=== PATIENT | male | born 1945 | race Caucasian/White ===

== ENCOUNTER → 2018-01-18 12:39 | Outpatient (CLI) | payer MEDICARE, SELFPAY ==
--- NOTE | 2018-01-18 12:41 | RAD_ITS ---
STUDY: X-RAY - LEFT ANKLE REASON FOR EXAM: Male, 72 years old. Follow-up of distal fibular fracture. TECHNIQUE: 3 view(s) of the ankle. COMPARISON: December 21, 2017 FINDINGS: There is stable generalized osteopenia. There is a stable healing fracture of the distal fibula originating at the tibiotalar joint with minimal callus formation. No complications are noted. RAD/Ankle min 3 Views IMPRESSION: Stable appearance of the ankle without complications. Electronically Signed: Abel Abrams MD at 18:46 EST , Service support ,
== END ==
PROVIDERS: Family Provider Family Medicine; PCP Family Medicine; Visit Provider Orthopaedic Surgery
DX: S82.62XA Displaced fracture of lateral malleolus of left fibula, initial encounter for closed fracture (principal)
CPT/HCPCS: 73610

== ENCOUNTER → 2018-04-04 08:19 | Outpatient (CLI) | payer MEDICARE, SELFPAY ==
[2018-04-04 10:57] LABS: Anion Gap 10 (5-15); BUN 14 mg/dL (7-18); Calcium,Total 8.8 mg/dL (8.5-10.1); Chloride 107 mmol/L (98-107); Cholesterol 144 mg/dL (200); EST Glomerular Filtration Rate 78 mL/min (>60); Est Glom Filt Rate - Afr Amer 94 mL/min (>60); Glucose 95 mg/dL (74-106); High Density Lipoprotein 47 mg/dL; PSA,Total - Annual Screen 2.64 ng/mL (0.00-4.00); Potassium 4.1 mmol/L (3.5-5.1); Sodium Level 143 mmol/L (136-145); Thyroid Stim Hormone (TSH) 1.42 uIU/mL (0.358-3.74); Triglycerides 92 mg/dL; Very Low Density Lipoprotein 18 mg/dL (5-40)
[2018-04-05 08:42] LABS: Vitamin D,25 Hydroxy 30.8 ng/mL (29.95-100.01)
== END ==
PROVIDERS: Family Provider Family Medicine; PCP Family Medicine; Visit Provider Family Medicine
DX: Z00.00 Encounter for general adult medical examination without abnormal findings (principal); E03.9 Hypothyroidism, unspecified; Z12.5 Encounter for screening for malignant neoplasm of prostate
CPT/HCPCS: 36415; 80048; 80061; 82306; 84153; 84443; G0103

== ENCOUNTER → 2018-09-22 10:25 | Outpatient (CLI) | payer MEDICARE, SELFPAY ==
[2018-09-22 12:15] LABS: Absolute Lymphocyte Count 1.62 X10^3/ul (0.83-4.51); Absolute Neutrophil Count 2.2 X10^3/uL (2.0-7.7); Basophil# 0.03 X10^3/uL; Basophil% 0.7 % (0-1); Eosinophil# 0.09 X10^3/uL; Hematocrit 40.9 % (40-54); Lymphocyte # 1.62 X10^3/ul (4.0); Mean Corp Hgb Conc 34.2 g/gl (32-36); Mean Corpuscular Hgb 31.7 pg (27.0-32.0); Mean Corpuscular Volume 92.5 fL (80-94); Mean Platelet Vol. 10.2 fl (6.2-12.0); Monocyte# 0.58 X10^3/uL; Monocyte% 12.9 % (0-10); Neutrophil # 2.17 X10^3/uL (2.7-7.7); Neutrophil % 48.2 % (47-70); Platelet Count 187 K/mm3 (150-450); RBC Distribution Width CV 13.2 % (11.6-14.6); RBC Distribution Width SD 43.6 fl (35.1-43.9); Red Blood Count 4.42 M/mm3 (4.6-6.2); White Blood Count 4.5 K/mm3 (4.4-11.0)
[2018-09-22 12:27] LABS: POSITIVE COUNT NO; POSITIVE DIFFERENTIAL NO; POSITIVE MORPHOLOGY NO
[2018-09-22 12:46] LABS: Anion Gap 8 (5-15); BUN 18 mg/dL (7-18); BUN/Creat Ratio 16.8 RATIO (10-20); Calcium,Total 9.1 mg/dL (8.5-10.1); Chloride 108 mmol/L (98-107); Creatinine, Serum 1.07 mg/dL (0.70-1.30); EST Glomerular Filtration Rate 72 mL/min (>60); Est Glom Filt Rate - Afr Amer 87 mL/min (>60); Glucose 99 mg/dL (74-106); Potassium 4.4 mmol/L (3.5-5.1); Sodium Level 141 mmol/L (136-145); Thyroid Stim Hormone (TSH) 0.58 uIU/mL (0.358-3.74)
== END ==
PROVIDERS: Family Provider Family Medicine; PCP Family Medicine; Visit Provider Family Medicine
DX: E03.9 Hypothyroidism, unspecified (principal); R42 Dizziness and giddiness
CPT/HCPCS: 36415; 80048; 84443; 85025

== ENCOUNTER → 2018-10-03 15:27 | Outpatient (CLI) | payer MEDICARE, SELFPAY ==
--- NOTE | 2018-10-03 16:00 | MRI_ITS ---
STUDY: MRI BRAIN WITH AND WITHOUT CONTRAST REASON FOR EXAM: Male, 73 years old. Nystagmus and dizziness TECHNIQUE: Standardized multiplanar fat and water weighted pulse sequences were obtained. 9 ml of Gadavist contrast material was administered intravenously for the contrast portion of the examination. COMPARISON: None. FINDINGS: Mild atrophy and minor periventricular white matter ischemic changes without mass effect or restricted diffusion.. Normal bilateral basal ganglia. Normal thalami. There is no extra-axial fluid accumulation. Normal flow voids within the major intracranial circulation suggesting patency by spin echo criteria. Normal venous enhancement. There is no enhancing intra-axial or extra-axial abnormality. Partial empty sella deformity of uncertain clinical significance. Normal, infundibular stalk, optic chiasm and hypothalamus. Normal tectal plate and pineal gland. Normal midbrain, candace and medulla. Normal cerebellum. Normal basal cisterns. Normal bilateral temporal bones. Normal bilateral internal auditory canals. No demonstrated orbital abnormality, within the constraints of a routine brain study. Minor mucosal thickening of the ethmoid air cells.. Normal calvarium and skull base. Normal visualized soft tissue structures. Normal visualized upper cervical spine. MRI/Brain W/WO Contrast IMPRESSION: Mild atrophy and minor periventricular white matter ischemic changes without evidence for acute infarct.. No evidence for enhancing lesion. Specifically no evidence for acoustic or vestibular schwannoma Electronically Signed: Tyree Garcia MD at 23:24 EST , Service support ,
== END ==
PROVIDERS: Family Provider Family Medicine; PCP Family Medicine; Referring Provider Ophthalmology; Visit Provider Ophthalmology
DX: H55.00 Unspecified nystagmus (principal); R42 Dizziness and giddiness
CPT/HCPCS: 70553; A9585

== ENCOUNTER → 2019-06-15 | Outpatient (CLI) | payer MEDICARE, SELFPAY ==
[2019-06-15 10:32] LABS: Anion Gap 7 (5-15); BUN 17 mg/dL (7-18); BUN/Creat Ratio 16.7 RATIO (10-20); Calcium,Total 8.8 mg/dL (8.5-10.1); Chloride 106 mmol/L (98-107); Cholesterol 148 mg/dL (200); Creatinine, Serum 1.02 mg/dL (0.70-1.30); EST Glomerular Filtration Rate 76 mL/min (>60); Est Glom Filt Rate - Afr Amer 91 mL/min (>60); Glucose 95 mg/dL (74-106); High Density Lipoprotein 48 mg/dL; Potassium 4.2 mmol/L (3.5-5.1); Sodium Level 140 mmol/L (136-145); Thyroid Stim Hormone (TSH) 1.33 uIU/mL (0.358-3.74); Triglycerides 108 mg/dL; Very Low Density Lipoprotein 22 mg/dL (5-40)
== END | disposition home or self-care (01) ==
PROVIDERS: Family Provider Family Medicine; PCP Family Medicine; Referring Provider Family Medicine; Visit Provider Family Medicine
DX: Z00.00 Encounter for general adult medical examination without abnormal findings (principal); I25.10 Atherosclerotic heart disease of native coronary artery without angina pectoris; E03.9 Hypothyroidism, unspecified; I10 Essential (primary) hypertension; Z12.5 Encounter for screening for malignant neoplasm of prostate
CPT/HCPCS: 36415; 80048; 80061; 84153; 84443; G0103

== ENCOUNTER → 2019-07-06 09:55 | Outpatient (CLI) | payer MEDICARE, SELFPAY ==
--- NOTE | 2019-07-06 09:59 | RAD_ITS ---
STUDY: X-RAY - RIGHT KNEE REASON FOR EXAM: Male, 74 years old. Pain TECHNIQUE: 4 view(s) of the knee. COMPARISON: None. FINDINGS: Normal visualized distal femur. Normal visualized proximal tibia and fibula. Normal proximal tibiofibular articulation. Normal medial femorotibial compartment. Normal lateral femorotibial compartment. Normal patellofemoral articulation. The soft tissue structures are unremarkable. Chondrocalcinosis of the menisci. RAD/Knee 4 or More Views IMPRESSION: No acute bony injury of the knee. Chondrocalcinosis of the menisci. Electronically Signed: Jean Contreras DO at 20:24 EDT Tel [phone], Service support ,
--- NOTE | 2019-07-06 10:21 | LES_PTH ---
PATIENT: PHILIPPE JACOBSON LOC: [facility] U#:[id number] AGE/SX: 80/M ROOM: RE07/06/[address]: Dr. Brannon Valles MD : [id number] BED: DIS: SPEC #: [id number] RECD: 07/06/19 12:10 STATUS: SOFIA MILA #: [id number] MAGED: 07/06/19 10:[address]: Brannon Valles DEPT: SURGICAL PATHOLOGY RECD BY: Asim Mcnamara Tissues: Skin, NOS Procedures: Surgery Specimen Level IV HEADER OPERATION: Biopsy, skin PRE-OP DIAGNOSIS: Neoplasm TISSUE SUBMITTED: Biopsy, skin MICROSCOPIC DIAGNOSIS Skin, not further specified, biopsy: Basal cell carcinoma. See comment. AM:robert 07/09/19 COMMENT The lesion extends to the peripheral and deep margins of excision. Clinical correlation is suggested. MICROSCOPIC DESCRIPTION Slides are reviewed. GROSS DESCRIPTION Received is one container labeled with the patient's name and not further designated. The specimen consists of a piece of jones-white skin measuring 1.2 x 0.5 x 0.1 cm. The specimen is inked and submitted entirely in one cassette. It will be sectioned at the time of embedding. / SJ:rg 07/06/19 TC:0 CPT: 81288
== END ==
PROVIDERS: Family Provider Family Medicine; PCP Family Medicine; Referring Provider Family Medicine; Visit Provider Family Medicine
DX: M25.561 Pain in right knee (principal); D49.9 Neoplasm of unspecified behavior of unspecified site
CPT/HCPCS: 73564; 88305

== ENCOUNTER 2019-08-08 13:00 | Outpatient (RCR) | payer MEDICARE, SELFPAY ==
--- NOTE | 2019-07-18 14:24 | HP.PTEVAL ---
Patient's Visit Information PHILIPPE JACOBSON is a 74 year old M referred to Physical Therapy by ORLIN MOHR with a diagnosis of R knee pain. Date of Evaluation: 07/18/19 Physical Therapist: Candelario Resendiz, PT, ATC - Visit Plan Frequency: 2x /Week Duration: 2 Weeks Plan: Issue and instruct pt on a HEP consisting of core stab ex's, R LE strengthening, balance and proprio, bike, and HEP - Subjective Findings: Pt reports his R knee has been sore for about 8 months. Pt reports he fractured his L fibula one year ago and notes he may have overcompensated with his R LE. Pt reports his pain is intermittent in nature. Pt reports when he rotates on his R LE, he will experience a sharp and debilitating on the medial aspect of his R knee. Pt reports xrays indicated he may have some calcification of his meniscus. No tingling or numbness in R LE. Pt reports occasional sleep difficulty secondary to pain. Pt reports he is very limited with squat to stand transfers. R knee gives out when he gets that sharp pain in his R knee. Pt reports no difficulty with his stair negotiation secondary to pain. 0/10 pain at rest, 7/10 at worst - Pain R knee Pain Intensity (Out of 10): 0 Pain Intensity Range: 7 - Objective Neuro: B LE sensation is wnl to light touch. B achilles reflex= 2/3. Palpation: significant crepitus in R knee. Mild swelling noted. Very tenxder on medial joint line. Girth at joint line: R knee 39 cm, L knee 38 cm. ROM: Lknee 0-5-140 degrees. R knee 0-5-135. MMT: B knee flex= 5/5. B knee ext= 4-/5 and was painful. special tests: Pos apley compression test - Goals Goal 1:: I with HEP Goal Time Frame: 2 Weeks - Rehabilitation Potential Physical Therapy Diagnosis: Pt has R knee pain, weakness, and limited ROM secondary to degenerative changes in the R knee Rehabilitation Potential: Good - Anticipated Interventions Patient/Client Instruction: Educate patient on: Condition, Plan of Care For the Purpose of:: To improve self management Therapeutic Exercise to Include: Strength training, Endurance training, Balance training, Dynamic Lumbar Stabilization For the Purpose of:: To decrease pain, To increase ROM, To improve muscle performance and motor function Cryotherapy (ice pack, ice massage): Yes For the Purpose of:: To decrease pain Thank you for the opportunity to evaluate your patient. For Medicare and Medicare HMO plans, please review the plan of care and approve it. It will need to be FAXED BACK to us at [phone] for Medicare purposes. For Medicare only, by signing this I certify the plan of care. Please let me know if there are questions or concerns regarding this plan of care. Physician Signature: Date:
--- NOTE | 2019-09-25 10:52 | HP.PT.NRP ---
HP - Discharge Summary (1) - Patient Information PHILIPPE JACOBSON was seen in my office for initial evaluation on 07/18/19. The following Plan of Care was established for this patient: Initial Frequency: 2x /Week Initial Duration: 2 Weeks - Anticipated Interventions Patient/Client Instruction: Educate patient on: Condition, Plan of Care For the Purpose of:: To improve self management Therapeutic Exercise to Include: Strength training, Endurance training, Balance training, Dynamic Lumbar Stabilization For the Purpose of:: To decrease pain, To increase ROM, To improve muscle performance and motor function Cryotherapy (ice pack, ice massage): Yes For the Purpose of:: To decrease pain This patient was last seen in our office . Pertinent comments regarding their Physical therapy will appear below: Patient was treated for R knee pain for 2 PT visits through the date of 08/08/19. Pt has not returned through todays date and is discontinued at this time. At this point I will be discontinuing this patient from physical therapy. I would be happy to see this patient again in the future if found appropriate by the physician. Thank you! Candelario Resendiz, PT, ATC
== END 2019-08-08 19:00 | disposition home or self-care (01) ==
LOC: PT 13:00
PROVIDERS: Family Provider Family Medicine; PCP Family Medicine
DX: M25.561 Pain in right knee (principal)
CPT/HCPCS: 97110; 97161

== ENCOUNTER → 2020-03-05 | Outpatient (CLI) | payer MEDICARE, SELFPAY ==
[2020-03-05 12:35] LABS: Anion Gap 4 (5-15); BUN 16 mg/dL (7-18); BUN/Creat Ratio 14.8 RATIO (10-20); Calcium,Total 9.2 mg/dL (8.5-10.1); Chloride 108 mmol/L (98-107); Cholesterol 160 mg/dL (200); Creatinine, Serum 1.08 mg/dL (0.70-1.30); EST Glomerular Filtration Rate 71 mL/min (>60); Est Glom Filt Rate - Afr Amer 85 mL/min (>60); Free T3 2.7 pg/mL (2.18-3.98); Glucose 101 mg/dL (74-106); High Density Lipoprotein 55 mg/dL; Potassium 4.3 mmol/L (3.5-5.1); Sodium Level 140 mmol/L (136-145); Thyroid Stim Hormone (TSH) 2.44 uIU/mL (0.358-3.74); Triglycerides 113 mg/dL; Very Low Density Lipoprotein 23 mg/dL (5-40)
== END | disposition home or self-care (01) ==
PROVIDERS: PCP Family Medicine; Referring Provider Family Medicine; Visit Provider Family Medicine
DX: E03.9 Hypothyroidism, unspecified (principal); I10 Essential (primary) hypertension
CPT/HCPCS: 36415; 80048; 80061; 84443; 84481

== ENCOUNTER → 2020-09-04 | Outpatient (CLI) | payer MEDICARE, SELFPAY ==
[2020-09-04 10:37] LABS: Anion Gap 5 (5-15); BUN 21 mg/dL (7-18); BUN/Creat Ratio 21.5 RATIO (10-20); Calcium,Total 9.1 mg/dL (8.5-10.1); Chloride 107 mmol/L (98-107); Creatinine, Serum 0.98 mg/dL (0.70-1.30); EST Glomerular Filtration Rate 79 mL/min (>60); Est Glom Filt Rate - Afr Amer 96 mL/min (>60); Glucose 100 mg/dL (74-106); PSA,Total - Annual Screen 2.67 ng/mL (0.00-4.00); Potassium 4.1 mmol/L (3.5-5.1); Sodium Level 139 mmol/L (136-145); Thyroid Stim Hormone (TSH) 1.24 uIU/mL (0.358-3.74)
== END | disposition home or self-care (01) ==
LOC: MFPLAB 08:57
PROVIDERS: PCP Family Medicine; Referring Provider Family Medicine; Visit Provider Family Medicine
DX: Z00.00 Encounter for general adult medical examination without abnormal findings (principal); E03.9 Hypothyroidism, unspecified; Z12.5 Encounter for screening for malignant neoplasm of prostate
CPT/HCPCS: 36415; 80048; 84153; 84443; G0103

== ENCOUNTER → 2021-03-04 10:40 | Outpatient (CLI) | payer MEDICARE, SELFPAY ==
[2021-03-04 12:55] LABS: Anion Gap 3 (5-15); BUN 14 mg/dL (7-18); BUN/Creat Ratio 14.3 RATIO (10-20); Calcium,Total 9.1 mg/dL (8.5-10.1); Chloride 106 mmol/L (98-107); Cholesterol 158 mg/dL (200); Creatinine, Serum 0.98 mg/dL (0.70-1.30); EST Glomerular Filtration Rate 79 mL/min (>60); Est Glom Filt Rate - Afr Amer 95 mL/min (>60); Free T3 2.2 pg/mL (2.18-3.98); Glucose 99 mg/dL (74-106); High Density Lipoprotein 57 mg/dL; Potassium 4.2 mmol/L (3.5-5.1); Sodium Level 137 mmol/L (136-145); T4 Free Direct 1.32 ng/dL (0.76-1.46); Thyroid Stim Hormone (TSH) 5.51 uIU/mL (0.358-3.74); Triglycerides 112 mg/dL; Very Low Density Lipoprotein 22 mg/dL (5-40)
== END ==
PROVIDERS: PCP Family Medicine; Referring Provider Family Medicine; Visit Provider Family Medicine
DX: I10 Essential (primary) hypertension (principal); E03.9 Hypothyroidism, unspecified
CPT/HCPCS: 36415; 80048; 80061; 84439; 84443; 84481

== ENCOUNTER → 2021-06-18 13:42 | Outpatient (CLI) | payer MEDICARE, SELFPAY ==
[2021-03-20 07:57] VITALS: BMI 28.5
--- NOTE | 2021-06-18 13:45 | RAD_ITS ---
STUDY: X-RAY - RIGHT SHOULDER REASON FOR EXAM: Right shoulder pain. TECHNIQUE: 4 view(s) of the shoulder. COMPARISON: None. FINDINGS: Normal glenohumeral articulation. There is acromioclavicular arthrosis. Normal acromion. Normal humeral head and visualized proximal humerus. There is mild calcific tendinitis. Normal visualized pulmonary apex. RAD/Shoulder min 2 Views IMPRESSION: Mild calcific tendinitis. Acromioclavicular arthrosis. Electronically Signed: Ye Monterroso MD at 14:09 EDT Tel , Service support ,
== END ==
PROVIDERS: PCP Family Medicine; Referring Provider Family Medicine; Visit Provider Family Medicine
DX: M25.511 Pain in right shoulder (principal)
CPT/HCPCS: 73030

== ENCOUNTER → 2021-08-05 14:14 | Outpatient (CLI) | payer MEDICARE, SELFPAY ==
[2021-03-20 07:57] VITALS: BMI 28.5
--- NOTE | 2021-08-05 15:27 | NEURO ---
NCS and/or EMG Patient Report Ordering Doctor: Brannon Valles DATE OF SERVICE: 08/05/21 Jay presents for electrodiagnostic testing of the right upper limb. He reports numbness and tingling in the right hand, worse over the past 2 months. Electrodiagnostic findings: Right median motor nerve demonstrates prolonged distal latency with reduced amplitude and reduced conduction velocity. Normal right ulnar motor response prolonged right median F wave. Absent right median sensory latency at the wrist. Normal ulnar radial sensory responses. On needle EMG, all muscles tested the right upper limb showed no evidence of denervation with normal motor unit action potentials. Electrodiagnostic impression: This is an abnormal study in the right upper limb. 1. Electrodiagnostic findings demonstrate right-sided median mononeuropathy. This is consistent with a moderate to advanced right carpal tunnel syndrome
== END ==
PROVIDERS: PCP Family Medicine; Referring Provider Family Medicine; Visit Provider Family Medicine
DX: G56.01 Carpal tunnel syndrome, right upper limb (principal)
CPT/HCPCS: 95886; 95910

== ENCOUNTER → 2021-08-25 10:20 | Outpatient (CLI) | payer MEDICARE, SELFPAY ==
--- NOTE | 2021-08-25 10:45 | EKG12_ITS ---
Test Reason : PREOP Blood Pressure : / mmHG Vent. Rate : 064 BPM Atrial Rate : 064 BPM P-R Int : 156 ms QRS Dur : 090 ms QT Int : 398 ms P-R-T Axes : 072 044 067 degrees QTc Int : 410 ms Normal sinus rhythm Normal ECG Confirmed by ANA SANCHEZ, LACIE ([id number]), fashion editor AJ LANIER ([id number]) on 08/26/2021 10:51:01 AM Referred By: Matti Salgado Confirmed By:LACIE PEREZ MD
[2021-08-25 11:00] LABS: Absolute Lymphocyte Count 1.23 X10^3/uL (0.83-4.51); Absolute Neutrophil Count 5.2 X10^3/uL (2.0-7.7); Basophil# 0.05 X10^3/uL; Basophil% 0.6 % (0-1); Eosinophil# 0.12 X10^3/uL; Eosinophils% 1.5 % (0-5); Hematocrit 40.5 % (40-54); Hemoglobin 13.5 g/dL (13.0-16.5); Lymphocyte # 1.23 X10^3/ul (0.83-4.51); Lymphocyte % 15.6 % (19-41); Mean Corp Hgb Conc 33.3 g/dL (32-36); Mean Corpuscular Hgb 31.3 pg (27.0-32.0); Mean Platelet Vol. 9.5 fl (6.2-12.0); Monocyte# 1.22 X10^3/uL; Monocyte% 15.5 % (0-10); NRBC Flagged by Analyzer 0 % (0-5); Neutrophil # 5.19 X10^3/uL (2.7-7.7); Neutrophil % 66.2 % (47-70); Platelet Count 201 K/mm3 (150-450); RBC Distribution Width CV 13.8 % (11.6-14.6); RBC Distribution Width SD 47.5 fl (35.1-43.9); Red Blood Count 4.31 M/mm3 (4.6-6.2); White Blood Count 7.9 K/mm3 (4.4-11.0)
[2021-08-25 11:32] LABS: Anion Gap 7 (5-15); BUN 15 mg/dL (7-18); Chloride 103 mmol/L (98-107); EST Glomerular Filtration Rate 77 mL/min (>60); Est Glom Filt Rate - Afr Amer 93 mL/min (>60); Glucose 125 mg/dL (74-106); Potassium 4.1 mmol/L (3.5-5.1); Sodium Level 138 mmol/L (136-145)
== END ==
PROVIDERS: PCP Family Medicine; Referring Provider Specialist; Visit Provider Specialist
DX: Z01.818 Encounter for other preprocedural examination (principal)
CPT/HCPCS: 36415; 80048; 85025; 93005

== ENCOUNTER → 2021-09-04 09:01 | Outpatient (CLI) | payer MEDICARE, SELFPAY ==
[2021-09-04 10:15] LABS: Cholesterol 137 mg/dL (200); Free T3 2.1 pg/mL (2.18-3.98); High Density Lipoprotein 45 mg/dL; T4 Free Direct 1.67 ng/dL (0.76-1.46); Thyroid Stim Hormone (TSH) 0.99 uIU/mL (0.358-3.74); Triglycerides 90 mg/dL; Very Low Density Lipoprotein 18 mg/dL (5-40)
== END ==
PROVIDERS: PCP Family Medicine; Referring Provider Family Medicine; Visit Provider Family Medicine
DX: E03.9 Hypothyroidism, unspecified (principal); I10 Essential (primary) hypertension
CPT/HCPCS: 36415; 80061; 84439; 84443; 84481

== ENCOUNTER 2022-01-05 12:30 | Outpatient (RCR) | payer MEDICARE, SELFPAY ==
--- NOTE | 2021-12-07 18:02 | HP.PTEVAL ---
Patient's Visit Information PHILIPPE JACOBSON is a 76 year old M referred to Physical Therapy by LUKE Hendrix with a diagnosis of OA L SHLD. Date of Evaluation: 12/07/21 Physical Therapist: Ellie Bran PT, Cert MDT - Visit Plan Frequency: 2-3x /Week Duration: 4-6 Weeks Plan: CHECK INSURANCE AUTH. CONSIDER L SHLD US. LEFT SHLD JOINT MOBILIZATION AND MANUAL AA/PROM TO INCREASE ROM GENTLY. POSTURE CORRECTION/STRENGTHENING, INSTRUCTION IN APPROPRIATE BODY MECHANICS AND ACTIVITY MODIFICATIONS. WALLY UE ROM, STRETCHING AND STRENGTHENING. HEP INSTRUCTION. - Subjective Diagnosis: L SHLD OA. 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 Present symptoms: WALLY SHLD PAIN LEFT > RIGHT. NECK STIFFNESS. SHOOTING PAINS IN WRIST. REPORTS ROSA BUTLER AT [facility] TOLD HIM ROBY MIGHT NEED TO CONSIDER CTR ON HIS LEFT WRIST TOO. R CTR SEP 2021. ONCE IN A WHILE STILL GETS A LITTLE SHOOTING PAIN IN THE RIGHT WRIST. Present since: MAY 2021. Pain Scale: Worst - 7/10 Least - 1-2/10. Currently: WALLY SHLD PAIN 1-2/10. Commenced as a result of: TRIMMING TREES IN MAY AFTER BEING SEDENTARY FOR 6-12 MONTHS. LIFTING BIG LIMBS AND FEELS LIKE HE OVER-DID IT. Symptoms at onset: SORENESS IN ARMS AND SHLDS AND LOW BACK. JUN STARTED HAVING SWELLING IN BOTH HANDS. CTR R HELPED THE SWELLING AND L HAND SWELLING EVENTUALLY WENT AWAY AFTER L SHLD CORTISONE SHOT. Worse: LIFTING, PUSHING OR PULLING WITH ARMS. PUTTING ON SHIRT AND COAT. Better: LET ARMS HANG AT SIDES - DECREASES FROM 6-7/10 TO 1/10 PAIN. ADVIL. Disturbed sleep: YES. Previous history/Previous treatment: UNREMARKABLE OTHER THAN SOME RIGHT HAND NUMBNESS. NO NECK SX. NO SHLD SX. NO ANASTACIA'S. NO CHIROPRACTOR. This episode: R CTR SEP 2021. PREDNISONE X 2 - HELPED A LOT. CORTISONE INJECTION R SHLD JUN 2021 - HELPED BUT TEMPORARY. L SHLD CORTISONE SHOT LAST WEEK 12/02/21. Dizziness: YES BUT NOT NEW. Tinnitis: CHRONIC. Nausea: NO. Shortness of Breath: NO. Difficulty Swollowing: NO. Gait: NORMAL - WALKING ABUT 2 MILES A DAY. Accidents: NO. Unexplained weight loss: NO. Imaging: RIGHT SHLD X-RAY - MILD CALCIFIC TENDONITIS MAY 2021. L SHLD X-RAY AND MRI IN OCT 2021 AT [facility] SHOWING MILD TEAR ROTATOR CUFF AND CALCIFICATION AND ARTHRITIS. PMH: L FIBULA FX FROM FALL ON BLACK ICE 2 YEARS AGO. HERNIA REPAIR A LONG TIME AGO. HEART STENTS 1998 AND 2002. HTN. HIGH CHOLESTEROL. - Objective Sitting Posture/Standing Posture: POOR. FH. RS'S. Active Correction of posture: NE. Other Observations: INDEP GAIT AND TRANSFERS. GOOD HISTORIAN. Motor deficit: WALLY SHLDS 3-/5, ELBOWS 5/5. WRISTS/HANDS DEFERRED TO OT - PATIENT PLANS TO DISCUSS OT WITH PHYSICIAN. Sensory deficit: WALLY UE LIGHT TOUCH SENSATION IS GROSSLY INTACT AND SYMMETRICAL BUT PATIENT REPORTS R DIGITS 2,3 AND [address] AND [address] FOOTE AWARE. ROM deficit: RIGHT SHLD ACTIVE ELEVATION TO 120 DEG AND LEFT 125 DEG IN SITTING. RIGHT SHLD SUPINE PASSIVE FLEX 142, ABD 140 DEG, ER 44 DEG, 51 DEG. RIGHT FLEX 138, ABD 110 DEG, ER 68 DEG, IR 54 DEG (ROTIONS MEASURED AT 60 DEG ABD). Cervical Mvmt Loss: Flex: NIL. Pro: NIL. Ext: MOD. Ret: MOD. RSB: MOD. LSB: MOD. R Rot: MIN. L Rot: MIN. PATIENT DENIES INCREASE IN ANY SX'S WITH NECK ROM TESTING. Postural strength: POOR. Palpation: NO ACUTE TENDERNESS WITH PALPATION OF CERVICAL OR WALLY SHLD REGIONS. TREATMENT: NEUROMUSCULAR REEDUCATION - INTRO TO RETRAINING OF MVMT AND POSTURE FOR SITTING AND STANDING ACTIVITIES. - Balance/Special Test Scores Quick DASH Score: 27.2725 - Goals Goal 1:: DECREASE C/O WALLY SHLD PAIN Goal Time Frame: 4-6 Weeks Goal 2:: INCREASE PAINFREE WALLY SHLD ROM TO EASE ADL'S Goal Time Frame: 4-6 Weeks Goal 3:: IMPROVE WALLY SHLD STRENGTH TO EASE ADL'S. Goal Time Frame: 4-6 Weeks Goal 4:: PATIENT WILL BE INDEP WITH A HEP FOR CONTINUED IMPROVEMENT ONCE FORMAL PHYSICAL THERAPY CONCLUDES. Goal Time Frame: 4-6 Weeks - Anticipated Interventions Patient/Client Instruction: Educate patient on: Condition, Plan of Care, Risk Factors For the Purpose of:: To improve self management Therapeutic Exercise to Include: Strength training, Body mechanics, Postural training, Flexibilty training, Neuromotor development, Scapular Strength/Stabilization For the Purpose of:: To decrease pain, To increase ROM, To improve muscle performance and motor function, To increase tolerance to activity/condition/position, To improve ability of physical actions for home/community/work/leisure Manual Therapy Techniques to Include: Passive ROM Comment: LEFT SHLD For the Purpose of:: To decrease pain, To increase ROM, To improve nutrient delivery to tissue Cryotherapy (ice pack, ice massage): Yes Thermo therapy (hot pack): Yes Ultrasound (thermal/non thermal): Yes - LEFT SHLD Thank you for the opportunity to evaluate your patient. For Medicare and Medicare HMO plans, please review the plan of care and approve it. It will need to be FAXED BACK to us at [phone] for Medicare purposes. For Medicare only, by signing this I certify the plan of care. Please let me know if there are questions or concerns regarding this plan of care. Physician Signature: Date:
--- NOTE | 2022-01-05 12:57 | HP.PTDCSUM_ITS ---
It has been my pleasure to treat PHILIPPE JACOBSON referred by LUKE Hendirx, with the diagnosis of OA L SHLD for a total of 7 visit(s). Discharge Date: Please see the following information for a summary of their discharge status. Subjective: PATIENT REPORTS HE SPENT ABOUT 3 HOURS TUESDAY SNOW BLOWING WITH INCREASED SHLD AND LEG PAIN AFTER. ALSO HURT SHOULDER RAKING SNOW OFF ROOF. REPORTS SEEING PA AT [facility] YESTERDAY AND SHE REFERRED HIM FOR ORTHO CONSULT TUESDAY. STATES HE IS CONTINUEING THE HOME EX'S THAT DON'T HURT. DESPITE CURRENT INCREASED PAIN HE REPORTS HE WAS GETTING SOME INCREASED FLEXABILITY IN HIS SHLD, A LITTLE LESS PAIN AND SLEEPING BETTER. WALLY SHLD'S Pain Intensity (Out of 10): 2 % Improvement: 20 Objective/Function: PATIENT WAS SEEN TODAY FOR RE-ASSESSMENT OF PROGRESS TOWARD THE SET PT GOALS AND THE NEED FOR FURTHER PHYSICAL THERAPY VS READINESS FOR DISCHARGE. OVER ALL AT THIS POINT PATIENT IS NOT MAKING SIGNIFICANT PROGRESS TOWARD SET GOALS BUT HE DOES HAVE A TOLERABLE HEP TO TRY TO MAINTAIN THE STRENGTH AND RANGE HE HAS IN HIS SHLD AND POSSIBLY IMPROVE OVER TIME. UPON EXAM TODAY: ROM deficit: RIGHT SHLD ACTIVE ELEVATION TO 150 DEG AND LEFT 132 DEG IN SITTING. RIGHT SHLD SUPINE PASSIVE FLEX 148, ABD 142 DEG, ER 42 DEG, IR 57 DEG. (ROTIONS MEASURED AT 60 DEG ABD). Goal 1:: DECREASE C/O WALLY SHLD PAIN Goal 2:: INCREASE PAINFREE WALLY SHLD ROM TO EASE ADL'S Goal 3:: IMPROVE WALLY SHLD STRENGTH TO EASE ADL'S. Goal 4:: PATIENT WILL BE INDEP WITH A HEP FOR CONTINUED IMPROVEMENT ONCE FORMAL PHYSICAL THERAPY CONCLUDES. Plan: PHYSICIAN RE-CHECK RECOMMENDED. D/C TO HEP TOLERATED AND FURTHER PHYSICIAN FOLLOW UP. PATIENT AGREEABLE. If there are questions or concerns regarding this patient's physical therapy, please feel free to call me at [phone]. Thank you for the referral of this patient. Sincerely, Ellie Bran, PT, Cert MDT Balance/Gait/Functional tests - Balance/Special Test Scores Quick DASH Score: [phone]
== END 2022-01-05 19:00 | disposition home or self-care (01) ==
LOC: PT 12:30
PROVIDERS: PCP Family Medicine; Referring Provider Physician Assistant Surgical; Visit Provider Physician Assistant Surgical
DX: M19.012 Primary osteoarthritis, left shoulder (principal)
CPT/HCPCS: 97035; 97140; 97162; 97164; 97530

== ENCOUNTER 2022-01-11 10:31 | Outpatient (CLI) | payer MEDICARE, SELFPAY ==
[2022-01-11 12:47] LABS: Creatinine, Serum 0.84 mg/dL (0.70-1.30); EST Glomerular Filtration Rate 94 mL/min (>60); Est Glom Filt Rate - Afr Amer 114 mL/min (>60)
== END 2022-01-11 23:59 | disposition home or self-care (01) ==
LOC: MFPLAB 10:33
PROVIDERS: PCP Family Medicine; Visit Provider Student in an Organized Health Care Education/Training Program
DX: Z01.812 Encounter for preprocedural laboratory examination (principal)
CPT/HCPCS: 36415; 82565

== ENCOUNTER 2022-02-26 12:01 | Outpatient (CLI) | payer MEDICARE, SELFPAY ==
--- NOTE | 2022-02-26 12:32 | RAD_ITS ---
EXAM: X-ray chest PA and lateral. HISTORY: PRE-OP TECHNIQUE: XR Chest 2 Views COMPARISON: None. LIMITATIONS: None. HEART: Normal size. TUBES/LINES: None. LUNGS: Normal. PLEURA: Normal. MEDIASTINUM: Normal. BONES/SOFT TISSUES: Normal. OTHER: Normal. CONCLUSION: Normal chest. Electronically Signed: Kim Lopez MD at 21:03 EDT , RAD/Chest PA and Lateral
[2022-02-26 15:36] LABS: Hematocrit 42.2 % (40-54); Mean Corp Hgb Conc 33.2 g/dL (32-36); Mean Corpuscular Hgb 31.4 pg (27.0-32.0); Mean Corpuscular Volume 94.6 fL (80-94); Mean Platelet Vol. 9.6 fl (6.2-12.0); Platelet Count 320 K/mm3 (150-450); RBC Distribution Width SD 48.3 fl (35.1-43.9); Red Blood Count 4.46 M/mm3 (4.6-6.2); White Blood Count 9.7 K/mm3 (4.4-11.0)
[2022-02-26 16:02] LABS: Anion Gap 9 (5-15); BUN 22 mg/dL (7-18); BUN/Creat Ratio 24.4 RATIO (10-20); Calcium,Total 9.4 mg/dL (8.5-10.1); Chloride 105 mmol/L (98-107); EST Glomerular Filtration Rate 86 mL/min (>60); Est Glom Filt Rate - Afr Amer 105 mL/min (>60); Glucose 70 mg/dL (74-106); Potassium 4.2 mmol/L (3.5-5.1); Sodium Level 138 mmol/L (136-145)
== END 2022-02-26 23:59 | disposition home or self-care (01) ==
PROVIDERS: PCP Family Medicine; Referring Provider Student in an Organized Health Care Education/Training Program; Visit Provider Student in an Organized Health Care Education/Training Program
DX: Z01.818 Encounter for other preprocedural examination (principal); Z01.811 Encounter for preprocedural respiratory examination
CPT/HCPCS: 36415; 71046; 80048; 85027

== ENCOUNTER → 2022-09-09 | Outpatient (CLI) | payer MEDICARE, SELFPAY ==
[2022-09-09 13:16] LABS: Anion Gap 7 (5-15); BUN 15 mg/dL (7-18); BUN/Creat Ratio 16.9 RATIO (10-20); Calcium,Total 9.4 mg/dL (8.5-10.1); Chloride 105 mmol/L (98-107); Cholesterol 140 mg/dL (200); Creatinine, Serum 0.89 mg/dL (0.70-1.30); EST Glomerular Filtration Rate 88 mL/min (>60); Est Glom Filt Rate - Afr Amer 106 mL/min (>60); Free T3 2.8 pg/mL (2.18-3.98); Glucose 98 mg/dL (74-106); High Density Lipoprotein 50 mg/dL; Potassium 3.9 mmol/L (3.5-5.1); Sodium Level 139 mmol/L (136-145); T4 Free Direct 1.62 ng/dL (0.76-1.46); Thyroid Stim Hormone (TSH) 0.61 uIU/mL (0.358-3.74); Triglycerides 109 mg/dL; Very Low Density Lipoprotein 22 mg/dL (5-40)
== END | disposition home or self-care (01) ==
LOC: MFPLAB 11:27
PROVIDERS: PCP Family Medicine; Referring Provider Family Medicine; Visit Provider Family Medicine
DX: I10 Essential (primary) hypertension (principal); E03.9 Hypothyroidism, unspecified
CPT/HCPCS: 36415; 80048; 80061; 84439; 84443; 84481

== ENCOUNTER → 2022-09-20 | Outpatient (CLI) | payer MEDICARE, SELFPAY ==
--- NOTE | 2022-09-20 12:31 | MRI_ITS ---
STUDY: MRI RIGHT SHOULDER REASON FOR EXAM: Male, 77 years old. SHOULDER PAIN,ROTATOR CUFF DISORDER SUSPECTED pain at superior lateral edge of proximal humerus, painful abduction x 2 months TECHNIQUE: Standardized fat and water weighted pulse sequences were obtained in all 3 orthogonal planes. COMPARISON: X-ray of the right shoulder dated June 18, 2021 FINDINGS: There is moderate partial interstitial tearing at the anterior aspect of the greater tuberosity insertion site is present and a distended with moderate swelling and edema and thickening of the surrounding fibers. Normal infraspinatus tendon. Normal subscapularis tendon. Normal teres minor tendon. Normal supraspinatus muscle. Normal infraspinatus muscle. Normal subscapularis muscle. Normal teres minor muscle. Normal glenohumeral articulation. Normal humeral head and visualized proximal humerus. Normal biceps labral complex. Normal intracapsular long biceps tendon. Normal labrum. Normal capsulo- ligamentous complex. Normal rotator interval. There is mild osteoarthritis of the acromioclavicular articulation. There is a Type II morphology (curved), with a neutral orientation. There is moderate fluid distention of the subacromial bursa, consistent with moderate subacromial-subdeltoid bursitis. Normal visualized coracohumeral and coracoacromial ligaments. Normal quadrilateral space. Normal axillary space. Normal deltoid muscle. Normal trapezius muscle. MRI/Upper Ext Joint Only(Routine) IMPRESSION: 1. There is moderate partial interstitial tearing at the anterior aspect of the greater tuberosity insertion site is present and a distended with moderate swelling and edema and thickening of the surrounding fibers. 2. Moderate subdeltoid bursal effusion Electronically Signed: Paxton Carrero MD at 14:14 EDT ,
== END | disposition home or self-care (01) ==
PROVIDERS: PCP Family Medicine; Referring Provider Student in an Organized Health Care Education/Training Program; Visit Provider Student in an Organized Health Care Education/Training Program
DX: M25.511 Pain in right shoulder (principal)
CPT/HCPCS: 73221

== ENCOUNTER → 2023-03-09 | Outpatient (CLI) | payer MEDICARE, SELFPAY ==
[2023-03-09 13:20] LABS: Anion Gap 2 (5-15); BUN 16 mg/dL (7-18); BUN/Creat Ratio 15.4 RATIO (10-20); Calcium,Total 9.3 mg/dL (8.5-10.1); Chloride 108 mmol/L (98-107); Cholesterol 176 mg/dL (200); Creatinine, Serum 1.04 mg/dL (0.70-1.30); EST Glomerular Filtration Rate 73 mL/min (>60); Est Glom Filt Rate - Afr Amer 88 mL/min (>60); Free T3 2.6 pg/mL (2.18-3.98); Glucose 100 mg/dL (74-106); High Density Lipoprotein 55 mg/dL; Sodium Level 136 mmol/L (136-145); T4 Free Direct 1.55 ng/dL (0.76-1.46); Thyroid Stim Hormone (TSH) 0.47 uIU/mL (0.358-3.74); Triglycerides 78 mg/dL; Very Low Density Lipoprotein 16 mg/dL (5-40)
== END | disposition home or self-care (01) ==
LOC: MFPLAB 09:48
PROVIDERS: PCP Family Medicine; Referring Provider Family Medicine; Visit Provider Family Medicine
DX: I10 Essential (primary) hypertension (principal); E03.9 Hypothyroidism, unspecified
CPT/HCPCS: 36415; 80048; 80061; 84439; 84443; 84481

== ENCOUNTER → 2023-06-08 | Outpatient (CLI) | payer MEDICARE, SELFPAY ==
[2023-06-08 11:04] LABS: Free T3 2.2 pg/mL (2.18-3.98); PSA,Total - Annual Screen 2.91 ng/mL (0.00-4.00); T4 Total, Thyroxin 13.8 ug/dL (4.5-12.1); Thyroid Stim Hormone (TSH) 2.43 uIU/mL (0.358-3.74)
== END | disposition home or self-care (01) ==
LOC: MFPLAB 08:41
PROVIDERS: PCP Family Medicine; Visit Provider Family Medicine
DX: Z00.00 Encounter for general adult medical examination without abnormal findings (principal); E03.9 Hypothyroidism, unspecified
CPT/HCPCS: 36415; 84153; 84436; 84443; 84481; G0103

== ENCOUNTER → 2023-09-07 | Outpatient (CLI) | payer MEDICARE, SELFPAY ==
[2023-09-07 13:20] LABS: ALB/GLOB Ratio 1.1 RATIO (0.9-2.4); AST(SGOT) 19 U/L (15-37); Alanine Aminotransfer ALT/SGPT 22 U/L (16-61); Albumin, Serum 3.5 g/dL (3.2-5.0); Alkaline Phosphatase 70 U/L (45-117); Anion Gap 7 (5-15); BUN 15 mg/dL (7-18); Chloride 106 mmol/L (98-107); Cholesterol 156 mg/dL (200); Creatinine, Serum 1.07 mg/dL (0.70-1.30); EST Glomerular Filtration Rate 71 mL/min (>60); Est Glom Filt Rate - Afr Amer 86 mL/min (>60); Free T3 2.2 pg/mL (2.18-3.98); Globulin 3.3 g/dL (2.2-4.2); Glucose 106 mg/dL (74-106); High Density Lipoprotein 51 mg/dL; Potassium 4.2 mmol/L (3.5-5.1); Protein, Total 6.8 g/dL (6.4-8.2); Sodium Level 137 mmol/L (136-145); T4 Free Direct 1.34 ng/dL (0.76-1.46); Thyroid Stim Hormone (TSH) 6.18 uIU/mL (0.358-3.74); Triglycerides 104 mg/dL; Very Low Density Lipoprotein 21 mg/dL (5-40)
== END | disposition home or self-care (01) ==
LOC: MFPLAB 10:01
PROVIDERS: PCP Family Medicine; Visit Provider Family Medicine
DX: I10 Essential (primary) hypertension (principal); E03.9 Hypothyroidism, unspecified
CPT/HCPCS: 36415; 80053; 80061; 84439; 84443; 84481

== ENCOUNTER 2023-10-09 21:32 | Inpatient (IN) | payer MEDICARE, SELFPAY ==
[2023-10-09 21:32] VITALS: BP 165/52; PULSE 73; RESP 12; O2SAT 99
[2023-10-09 21:33] VITALS: BP 180/91; PULSE 78; RESP 16; TEMP 37.1; O2SAT 98; BMI 27.4
--- NOTE | 2023-10-09 21:36 | EKG12_ITS ---
Test Reason : CP Blood Pressure : / mmHG Vent. Rate : 073 BPM Atrial Rate : 073 BPM P-R Int : 168 ms QRS Dur : 096 ms QT Int : 398 ms P-R-T Axes : 066 035 060 degrees QTc Int : 438 ms Normal sinus rhythm Normal ECG Confirmed by ANA ROSA SANCHEZ, RADHA ([id number]), editor producer AJ LANIER ([id number]) on 10/18/2023 2:15:03 PM Referred By: Confirmed By:RADHA OSEGUERA MD
--- NOTE | 2023-10-09 21:52 | RAD_ITS ---
STUDY: XR Chest 1 View 10/09/2023 9:49 PM REASON FOR EXAM: Male, 78 years old. chest pain COMPARISON: 4.12.19 TECHNIQUE: XR Chest 1 View FINDINGS: There is no demonstrated pleural abnormality. Normal heart size. Normal mediastinum. Normal lenny. Prominent appearing increased interstitial lung markings. Normal visualized pulmonary arteries. There is atherosclerotic calcification of the aortic arch with tortuosity. There are diffuse degenerative changes of the visualized thoracic spine. There is degenerative osteoarthritis of the bilateral shoulders. There are no acute findings of the upper abdomen. RAD/Chest 1 View (Portable) IMPRESSION: There are no acute findings. Electronically Signed: Candelario Melvin MD at 22:00 EST ,
[2023-10-09 22:16] LABS: Absolute Lymphocyte Count 1.94 X10^3/uL (0.83-4.51); Absolute Neutrophil Count 4.4 X10^3/uL (2.0-7.7); Basophil# 0.07 X10^3/uL; Eosinophil# 0.16 X10^3/uL; Eosinophils% 2.2 % (0-5); Hematocrit 45.4 % (40-54); Lymphocyte # 1.94 X10^3/ul (0.83-4.51); Lymphocyte % 26.8 % (19-41); Mean Corpuscular Volume 93.8 fL (80-94); Mean Platelet Vol. 9.1 fl (6.2-12.0); Monocyte# 0.62 X10^3/uL; Monocyte% 8.6 % (0-10); NRBC Flagged by Analyzer 0 % (0-5); Neutrophil # 4.43 X10^3/uL (2.7-7.7); Neutrophil % 61.3 % (47-70); Platelet Count 223 K/mm3 (150-450); RBC Distribution Width CV 12.7 % (11.6-14.6); RBC Distribution Width SD 43.8 fl (35.1-43.9); Red Blood Count 4.84 M/mm3 (4.6-6.2); White Blood Count 7.2 K/mm3 (4.4-11.0)
[2023-10-09 22:22] VITALS: BP 155/81; PULSE 72; RESP 16; O2SAT 97
[2023-10-09 22:33] LABS: Anion Gap 1 (5-15); BUN 18 mg/dL (7-18); Calcium,Total 9.1 mg/dL (8.5-10.1); Chloride 105 mmol/L (98-107); EST Glomerular Filtration Rate 62 mL/min (>60); Est Glom Filt Rate - Afr Amer 75 mL/min (>60); Estimated Creatinine Clearance 50.69 ml/min; Glucose 132 mg/dL (74-106); Potassium 4.1 mmol/L (3.5-5.1); Sodium Level 137 mmol/L (136-145); Troponin-I HS (w/2H Reflex) 47 pg/mL (3.0-78.0)
--- NOTE | 2023-10-09 22:51 | EDS_ITS ---
HPI History of Present Illness Chief Complaint: Chest Pain Informant: patient Onset/Context/Timing Onset: Yesterday Activity at onset: gradual Timing: Intermittent and Lasts (Hours) Quality: Positive for Burning and Dull Location: Left Chest and - (Left jaw and between shoulder blades) Worsened By: Nothing Relieved By: Antacids Associated Symptoms: Positive for Diaphoresis, Lightheadedness and Acid Reflux; Negative for Nausea, Vomiting, Dyspnea, Cough, Fever or Palpitations Narrative Narrative: Patient presents with chest pain that began yesterday. Patient states that has been intermittent. Patient states it has been constant for the past couple hours. Patient describes it as dull and burning. Patient states it is mainly over the left side of his chest. Patient states it does radiate into his back and into his left jaw. Patient admits to some diaphoresis with the pain. Patient also admits to some lightheadedness when he walked up a flight of stairs. Patient states he did take some antacids which seem to help with it. Patient states he also took nitroglycerin and aspirin which did not seem to help. CVD Risk Factors: Positive for Hypertension, Hypercholesterolemia and Family History 1' </=55; Negative for Diabetes or Smoking PE Risk Factors: Negative for Recent Travel/Surgery, Recent Immobilization, Prior DVT or PE, Cancer or OCP + Smoking + >/=[address] [facility] Medical History Coronary artery disease High cholesterol Hypertension Home Medications amlodipine 5 mg tablet 5 mg PO BID 12/07/17 [History Last Taken Unknown] aspirin 81 mg tablet,delayed release 81 mg PO QDAY 12/07/17 [History Last Taken Unknown] atorvastatin 20 mg tablet 20 mg PO ONCE 12/07/17 [History Last Taken Unknown] aspirin 325 mg capsule 325 mg PO DAILY PRN chest pain 10/09/23 [History Last Taken Unknown] cholecalciferol (vitamin D3) 25 mcg (1,000 unit) tablet (Vitamin D3) 25 mcg PO DAILY 10/09/23 [History Last Taken Unknown] levothyroxine 175 mcg tablet (Synthroid) 175 mcg PO DAILY 10/09/23 [History Last Taken Unknown] lisinopril 20 mg tablet 20 mg PO DAILY 10/09/23 [History Last Taken Unknown] metoprolol tartrate 50 mg tablet 50 mg PO BID 10/09/23 [History Last Taken Unknown] nitroglycerin 0.4 mg sublingual tablet 0.4 mg sublingual Q5M PRN chest pain 10/09/23 [History Last Taken 10/09/23] tamsulosin 0.4 mg capsule 0.4 mg PO Q24H 10/09/23 [History Last Taken Unknown] Allergy/AdvReac Type Severity Reaction Status Date / Time No Known Allergies Allergy Verified 10/09/23 21:35 Surgical History H/O heart artery stent H/O hernia repair Social History Smoking Status: Never smoker ROS ROS ED Constitutional Constitutional ED: Reports sweats; Denies chills or fever(s) Eyes Eyes: Denies blurry vision or change in vision ENT ENT ED: Denies rhinorrhea or sore throat Cardiovascular Cardiovascular: Reports chest pain; Denies palpitations Respiratory/Chest Respiratory/Chest: Denies cough or dyspnea Gastrointestinal Gastrointestinal: Denies nausea or vomiting Genitourinary Genitourinary ED: Denies dysuria or hematuria Musculoskeletal Musculoskeletal: Reports back pain and neck pain Integumentary Denies abscess or rash Neurologic Neurologic: Denies headache(s) or weakness Allergic/Immunologic Allergic/Immunologic ED: Denies mouth swelling or urticaria EXAM Physical Exam Const Vital Signs: 10/09/23 21:33 10/09/23 21:32 10/09/23 21:36 Temperature 98.7 F Temperature Source Temporal Pulse Rate 78 73 Respiratory Rate 16 12 Respiratory Effort Respiratory Pattern Blood Pressure 180/91 H 165/52 H Blood Pressure Mean 120 89 Pulse Ox 98 99 Oxygen Delivery Method Room Air Room Air Room Air 10/09/23 22:14 10/09/23 22:22 10/09/23 23:25 Temperature Temperature Source Pulse Rate 72 75 Respiratory Rate 16 12 Respiratory Effort Normal Respiratory Pattern Normal Blood Pressure 155/81 H 159/86 H Blood Pressure Mean 105 110 Pulse Ox 97 97 Oxygen Delivery Method Room Air Room Air 10/09/23 23:45 10/09/23 23:53 10/10/23 00:01 Temperature Temperature Source Pulse Rate 77 77 73 Respiratory Rate 15 Respiratory Effort Respiratory Pattern Blood Pressure 182/74 H 180/93 H 165/80 H Blood Pressure Mean 110 122 108 Pulse Ox 96 Oxygen Delivery Method Room Air 10/10/23 00:55 Temperature Temperature Source Pulse Rate 76 Respiratory Rate 14 Respiratory Effort Respiratory Pattern Blood Pressure 165/89 H Blood Pressure Mean 114 Pulse Ox 96 Oxygen Delivery Method Room Air Positive well nourished, well developed and obese General Appearance ED: well developed and NAD Nutritional Appearance: obese HEENT Reports moist mucous membranes Neck supple and no JVD Resp normal respiratory effort and clear to auscultation bilaterally Cardio regular rate and regular rhythm GI soft to palpation, non-tender and non-distended Extremity normal to inspection General Extremety ED: Negative for edema or tenderness General Extremity: Negative for edema Neuro oriented x3, CN's II-XII intact bilaterally and no sensory deficits noted Sensorium / Orientation: awake and alert Motor Exam: strength 5/5 throughout Heart Score History: Moderately Suspicious ECG: Normal Age: >/= 65 years Risk Factors: >/= 3 Risk Factors or History of CAD Troponin: </= Normal Limit Score: 5 MDM MDM MDM Narrative Medical decision making narrative: Differential diagnosis includes cardiac dysrhythmia, cardiac ischemia, pneumonia, pneumothorax, musculoskeletal pain, and anxiety. Patient has a Wells score of 0 and has no risk factors for pulmonary embolism. Therefore I do not think this is from a pulmonary embolism. EKG will be obtained to assess for cardiac dysrhythmia and cardiac ischemia. Chest x-ray will be obtained to assess for pneumonia and pneumothorax. CBC will be obtained to assess for leukocytosis and anemia. Basic metabolic profile will be obtained to assess for electrolyte abnormality and renal function. High-sensitivity troponin will be obtained to assess for cardiac ischemia. 2-hour repeat high-sensitivity troponin will be obtained to assess for ongoing cardiac ischemia. Lab Data Attestation: I reviewed the patient's lab results. Lab results narrative: CBC was reviewed and was within normal limits. Basic metabolic profile was reviewed and was within normal limits with exception of a slightly elevated glucose of 132. High-sensitivity troponin was reviewed and was normal at 47. 2-hour repeat high-sensitivity troponin was normal at 58. Labs: Laboratory Results - last 24 hr 10/09/23 10/10/23 22:08 00:00 WBC 7.2 RBC 4.84 Hgb 15.0 Hct 45.4 MCV 93.8 MCH 31.0 MCHC 33.0 RDW Std Deviation 43.8 RDW Coeff of Yosvany 12.7 Plt Count 223 MPV 9.1 Immature Gran % (Auto) 0.100 Neut % (Auto) 61.3 Lymph % (Auto) 26.8 [place] % (Auto) 8.6 Eos % (Auto) 2.2 Baso % (Auto) 1.0 Absolute Neuts (auto) 4.4 Absolute Lymphs (auto) 1.94 Nucleated RBC % 0 Sodium 137 Potassium 4.1 Chloride 105 Carbon Dioxide 31.0 Anion Gap 1 L BUN 18 Creatinine 1.20 Estim Creat Clear Calc 50.69 Est GFR (MDRD) Af Amer 75 Est GFR (MDRD) Non-Af 62 BUN/Creatinine Ratio 15.0 Glucose 132 H Calcium 9.1 Troponin I High Sens 47 58 Radiography Chest X-Ray - ED: 1 View, Read by ED Physician, Read by Radiologist and No Acute Disease Diagnostic Testing: Clinical Impression(s) from Imaging Studies Chest X-Ray 10/09/23 21:52 IMPRESSION: There are no acute findings. Electronically Signed: Candelario Melvin MD at 22:00 EST Reading Location ID and State: [facility] / [place] , Service support , Portable 1 view chest x-ray was obtained. On my independent interpretation, lung valentine are clear. There is normal cardiac silhouette. Bony thorax is normal. There is no acute process noted. Radiologist also interpreted the x- ray and agrees. EKG Initial EKG: Attestation: I personally reviewed and interpreted this EKG as follows: Interpretation: Sinus Rhythm (73) and No Acute Injury Pattern Comments: EKG was obtained. On my independent interpretation, it showed a normal sinus rhythm with a rate of 73. MN interval, QRS interval, and QTc intervals were all normal. [place] was normal. There are no acute ST or T wave changes. Prior EKG tracings: available for review Prior: Unchanged (08/25/2021) Management Discussion w/another healthcare provider: Hospitalist Treatment and Re-Evaluation :: Patient was advised of his findings. Patient's blood pressure went up to 180/74. Patient was given his normal dose of amlodipine. Patient's blood pressure improved to 165/80. Patient did become symptomatic whenever he would walk to the bathroom. Patient states his chest pain returned whenever he walked to the bathroom and back. Because of this, I recommended admission to the hospital. Patient has a HEART score of 5. This puts the patient at moderate risk for acute cardiac event. Case was discussed with the hospitalist. He will admit the patient to his service. Patient understood and was agreeable with the plan. All questions were answered. Discharge Plan Dx/Rx/DC Orders Clinical Impression: Chest pain of uncertain etiology, Hypertension, History of coronary artery disease Disposition Disposition: Acute Care Hospital [facility]
[2023-10-09 23:25] VITALS: BP 159/86; PULSE 75; RESP 12; O2SAT 97
[2023-10-09 23:45] VITALS: BP 182/74; PULSE 77
[2023-10-09 23:53] VITALS: BP 180/93; PULSE 77
[2023-10-10] VITALS (13 sets, daily range): BP systolic 129–170; BP diastolic 72–91; PULSE 67–86; RESP 13–18; TEMP 36.4–36.8; O2SAT 96–99; BMI 27.3
[2023-10-10] MEDS: amLODIPine 5 MG Tablet PO ×3 (00:12→20:43)
[2023-10-10 00:13] LABS: Reflex Troponin-HS? (from REC) Y
[2023-10-10 00:35] LABS: Troponin-I HS 58 pg/mL (3.0-78.0)
--- NOTE | 2023-10-10 00:55 | HP.PCM.HOS_ITS ---
HPI - General General Date of Admission: 10/10/23 Date of Service: 10/10/23 Chief Complaint: Chest pain HPI Narrative PHILIPPE LUNDBERG, is a 78 M with a past medical history of hypertension, hyperlipidemia, hypothyroidism, BPH, history of hernia repair and known history of coronary artery disease; status post [place] with first stent placement at [facility] in [place] (~1999) followed by Roto-suction due to scarring attributed to stent (2000) and then he had a second ERNST placed in 2005 with a small subsequent [place] after an angiogram approximately 4 years ago done at [facility] showed an small artery with 80% stenosis that was too small to be stented who presents to [facility] ER complaining of chest pain. Mr. Lundberg reports his symptoms began proximately 1-2 days prior to admission with chest pain that was mainly over the left side of his chest, dull and burning, sense of heaviness and was initially intermittent but then at around 4:30 PM on 10/09/2023 the pain became worse and around 8:30 PM it became constant at ~4-5/10 just prior to admission with radiation into his back and into his Left jaw and it increased to ~7-8/10 at the worst and is now only ~1- 2/10. He also admits to diaphoresis and lightheadedness when he walked up a flight of steps and his blood pressure in the ER was highly elevated at 180/91 mmHg but he says it is typically in the 135/60 mm Hg range. At home he did take some antacids (Pepcid) which initially which seemed to help - but then his symptoms recurred and he decided to come in for further evaluation and treatment. He denies associated fever, chills, nausea, vomiting, diarrhea, constipation or recent significant travel or immobilization. In the ER he was noted to have a negative troponin and an unremarkable EKG and chest x-ray and he was then admitted to the CDU under observation status for ongoing chest pain work-up that is expected to take less than 48 hours. [facility] Medical History (Updated 10/10/23 @ 03:[address] Donell Mirza, ) Coronary artery disease High cholesterol Hypertension Home Medications amlodipine 5 mg tablet 5 mg PO DAILY 12/07/17 [History Last Taken Unknown] aspirin 81 mg tablet,delayed release 81 mg PO QDAY 12/07/17 [History Last Taken Unknown] atorvastatin 20 mg tablet 20 mg PO ONCE 12/07/17 [History Last Taken Unknown] aspirin 325 mg capsule 325 mg PO DAILY PRN chest pain 10/09/23 [History Last Taken Unknown] cholecalciferol (vitamin D3) 25 mcg (1,000 unit) tablet (Vitamin D3) 25 mcg PO DAILY 10/09/23 [History Last Taken Unknown] levothyroxine 175 mcg tablet (Synthroid) 175 mcg PO DAILY 10/09/23 [History Last Taken Unknown] lisinopril 20 mg tablet 20 mg PO DAILY 10/09/23 [History Last Taken Unknown] metoprolol tartrate 50 mg tablet 50 mg PO BID 10/09/23 [History Last Taken Unknown] nitroglycerin 0.4 mg sublingual tablet 0.4 mg sublingual Q5M PRN chest pain 10/09/23 [History Last Taken 10/09/23] tamsulosin 0.4 mg capsule 0.4 mg PO Q24H 10/09/23 [History Last Taken Unknown] Allergy/AdvReac Type Severity Reaction Status Date / Time No Known Allergies Allergy Verified 10/09/23 21:35 Surgical History H/O heart artery stent H/O hernia repair Social History Smoking Status: Never smoker ROS ROS Narrative Review of systems: Constitutional: Patient admits to diaphoresis but denies fever Eyes: Patient denies visual changes ENT: Patient denies runny nose or sore throat Cardiovascular: Patient admits to chest pain but denies palpitations Respiratory: Patient denies shortness of breath or cough Gastrointestinal: Patient denies nausea, vomiting, diarrhea and constipation Genitourinary: Patient denies dysuria or hematuria Musculoskeletal: Patient admits to back pain that radiated from his chest Integumentary: Patient denies abscess or rash Neurologic: Patient denies headache or focal neurologic weakness Allergic: Patient denies mouth/lip swelling or urticaria 14 point review systems otherwise negative except for positives noted above in HPI. Vital Signs Vital Signs Vital Signs: 10/09/23 21:33 10/09/23 21:32 10/09/23 21:36 Temperature 98.7 F Temperature Source Temporal Pulse Rate 78 73 Respiratory Rate 16 12 Respiratory Effort Respiratory Pattern Blood Pressure 180/91 H 165/52 H Blood Pressure Mean 120 89 Pulse Ox 98 99 Oxygen Delivery Method Room Air Room Air Room Air 10/09/23 22:14 10/09/23 22:22 10/09/23 23:25 Temperature Temperature Source Pulse Rate 72 75 Respiratory Rate 16 12 Respiratory Effort Normal Respiratory Pattern Normal Blood Pressure 155/81 H 159/86 H Blood Pressure Mean 105 110 Pulse Ox 97 97 Oxygen Delivery Method Room Air Room Air 10/09/23 23:45 10/09/23 23:53 10/10/23 00:01 Temperature Temperature Source Pulse Rate 77 77 73 Respiratory Rate 15 Respiratory Effort Respiratory Pattern Blood Pressure 182/74 H 180/93 H 165/80 H Blood Pressure Mean 110 122 108 Pulse Ox 96 Oxygen Delivery Method Room Air Weight Weight: 191 lb 6 oz Body Mass Index (BMI) 27.4 Physical Exam Narrative Patient appears younger than his stated age and is very mentally sharp. His was also present at the bedside to help augment the history. Const alert, oriented x3, no apparent distress, average body habitus, healthy appearing and well nourished General Appearance: cooperative HEENT normocephalic, head/scalp atraumatic, hearing grossly normal bilaterally, moist oral mucous membranes and oropharynx normal Eyes PERRL, EOMs intact bilaterally and conjunctivae normal Neck no lymphadenopathy, supple and no JVD Resp normal respiratory effort, no retractions, no use of accessory muscles and clear to auscultation bilaterally Cardio regular rate and regular rhythm GI normal to inspection, nondistended, normoactive bowel sounds, soft to palpation, non-tender and non-distended Extremity normal to inspection and full ROM Skin Skin Narrative: Patient has no evidence of rash at this time. Neuro oriented x3, CN's II-XII intact bilaterally, moves all extremities and no focal motor deficits Sensorium / Orientation: awake, alert, oriented to person, oriented to place and oriented to time Speech: speech normal Motor Exam: strength 5/5 throughout Psych affect normal Results Medical Records Data Attestation: I reviewed the patient's medical records Lab / Micro Data Attestation: I reviewed the patient's lab results. 10/09/23 22:08 10/09/23 22:08 Labs: Laboratory Results - last 24 hr 10/09/23 22:08: WBC 7.2, RBC 4.84, Hgb 15.0, Hct 45.4, MCV 93.8, MCH 31.0, MCHC 33.0, RDW Std Deviation 43.8, RDW Coeff of Yosvany 12.7, Plt Count 223, MPV 9.1, Immature Gran % (Auto) 0.100, Neut % (Auto) 61.3, Lymph % (Auto) 26.8, [place] % (Auto) 8.6, Eos % (Auto) 2.2, Baso % (Auto) 1.0, Absolute Neuts (auto) 4.4, Absolute Lymphs (auto) 1.94, Nucleated RBC % 0, Sodium 137, Potassium 4.1, Chloride 105, Carbon Dioxide 31.0, Anion Gap 1 L, BUN 18, Creatinine 1.20, Estim Creat Clear Calc 50.69, Est GFR (MDRD) Af Amer 75, Est GFR (MDRD) Non-Af 62, BUN/Creatinine Ratio 15.0, Glucose 132 H, Calcium 9.1, Troponin I High Sens 47 10/10/23 00:00: Troponin I High Sens 58 Micro: [facility] Imaging Services [address] [place] [id number] Chest 1 View (Portable) MR#: [id number] Acct: [id number] Name: PHILIPPE LUNDBERG Rep #: [id number] : 1945 M 78 From: Candelario Melvin MD PCP: Dr. Brannon Valles MD Status: REG ER Study: Chest 1 View (Portable) Date of Exam: 10/09/23 Exam# [id number] Ordering Dr: Rachid Abdul PXavier STUDY: XR Chest 1 View 10/09/2023 9:49 PM REASON FOR EXAM: Male, 78 years old. chest pain COMPARISON: 02.26.22 TECHNIQUE: XR Chest 1 View FINDINGS: There is no demonstrated pleural abnormality. Normal heart size. Normal mediastinum. Normal lenny. Prominent appearing increased interstitial lung markings. Normal visualized pulmonary arteries. There is atherosclerotic calcification of the aortic arch with tortuosity. There are diffuse degenerative changes of the visualized thoracic spine. There is degenerative osteoarthritis of the bilateral shoulders. There are no acute findings of the upper abdomen. RAD/Chest 1 View (Portable) IMPRESSION: There are no acute findings. Electronically Signed: Candelario Melvin MD at 22:00 EST , CC: Dr. Brannon Valles MD; ED PHYSICIAN PROVIDER ~ Avionics Systems Technician: Signed Radiology Impression Chest X-Ray 10/09/23 21:52 IMPRESSION: There are no acute findings. Electronically Signed: Candelario Melvin MD at 22:00 EST , Assessment & Plan Assessment/Plan (1) Chest pain: QUALIFIERS: Chest pain type: unspecified Qualified Code(s): R07.9 - Chest pain, unspecified (2) Uncontrolled hypertension: PLAN: Plan 1. Chest pain; in the setting of previously known coronary artery disease with stent placement in the past - Admit to CDU under observation status. Serialize troponin. Check echocardiogram to evaluate left ventricular function. Check Lexiscan nuclear stress test in the a.m. to evaluate for potential underlying ischemia. Continue aspirin and as needed sublingual nitroglycerin. Give Tylenol for mild to moderate level 1-5 pain or fever. Give morphine sulfate IV as needed for level 6-10 out of 10 pain. 2. Uncontrolled hypertension; with blood pressure of 180/91 mmHg present on admission complicating #1 - Continue home regimen and give as needed IV hydralazine for systolic blood pressure greater than 160 mmHg. 3. Hyperlipidemia - Resume statin and check lipid profile this admission. 4. Hypothyroidism - Continue Synthroid as previous and check TSH this admission. 5. BPH - Tamsulosin to be continued as previous. 6. DVT prophylaxis - Lovenox 40 mg subcu daily. Total time: Approximately 45 minutes. Charges/Coding Visit Charges OBSV E&M: 13782 Observ/hosp same date L1
--- NOTE | 2023-10-10 01:13 | ECHOCS_ITS ---
Reason For Study: Chest Pain Procedure This was a 2D Doppler, Color Flow transthoracic echocardiogram. The study was technically difficult. Contrast injection was performed. Exam performed portable in patient room. Left Ventricle Normal left ventricle. The estimated ejection fraction is 55-60 %. Right Ventricle Normal right ventricle. Normal systolic function. Atria Normal left atrium. Normal right atrium. Mitral Valve The mitral valve is structurally normal. No prolapse or stenosis seen. Trivial mitral valve insufficiency. Tricuspid Valve Normal tricuspid valve. Trivial tricuspid valve insufficiency. Aortic Valve Mild diffuse aortic valve calcification. Pulmonic Valve The pulmonic valve is not well visualized. Great Vessels Normal aortic root. Pericardium/Pleural No pericardial effusion. Medication Diluted definity 3ml given slow IV push to enhance endocardial definition. MMode/2D Measurements & Calculations LVIDd: 4.5 cm IVSd: 0.98 cm Ao root diam: 3.7 cm LVIDs: 2.9 cm LVPWd: 1.1 cm LA dimension: 3.0 cm RVDd: 3.6 cm FS: 36.5 % LAV(MOD-bp): 36.1 ml LA A4 area: 14.6 cm2 RA A4 area: 15.9 cm2 LAV(MOD-bp) Indexed: 17.6 ml/m2 LAV(MOD-sp2): 34.3 ml LAV(MOD-sp4): 34.7 ml TAPSE: 2.1 cm Time Measurements MV dec time: 0.27 sec Doppler Measurements & Calculations MV E max sha: 52.4 cm/sec Lat Peak E' Sha: 5.2 cm/sec Med Peak E' Sha: 7.8 cm/sec MV A max sha: 91.6 cm/sec E/E' lat: 10.1 E/E' med: 6.7 MV E/A: 0.57 MV V2 max: 99.0 cm/sec MV P1/2t max sha: 58.2 cm/sec Ao V2 max: 102.3 cm/sec MV max P.9 mmHg MV P1/2t: 98.0 msec Ao max P.2 mmHg MV V2 mean: 49.5 cm/sec MV dec slope: 173.8 cm/sec2 MV mean P.2 mmHg MVA(P1/2t): 2.2 cm2 MV V2 VTI: 18.1 cm LV V1 max: 92.1 cm/sec PA V2 max: 84.5 cm/sec LV V1 max P.4 mmHg LV V1 mean P.7 mmHg LV V1 mean: 61.3 cm/sec LV V1 VTI: 21.4 cm ECHO/Echo Complete W/ Contrast Interpretation Summary The estimated ejection fraction is 55-60 %. Normal LV systolic function Contrast/using Definity For better delineation of the endocardial borders used Ordering Physician: Donell Mirza Referring Physician: Brannon Valles Performed By: Ted Herrera RCS
[2023-10-10 01:52] LABS: Cholesterol 154 mg/dL (200); High Density Lipoprotein 52 mg/dL; Triglycerides 96 mg/dL; Very Low Density Lipoprotein 19 mg/dL (5-40)
[2023-10-10] MEDS: Nitroglycerin (INPATIENT USE) 0.4 MG TAB.SUBL SL ×3 (02:50→03:06)
[2023-10-10] MEDS: Atorvastatin Calcium 20 MG Tablet PO ×2 (02:50→20:43)
--- NOTE | 2023-10-10 04:12 | EKG12_ITS ---
Test Reason : Blood Pressure : / mmHG Vent. Rate : 081 BPM Atrial Rate : 081 BPM P-R Int : 154 ms QRS Dur : 088 ms QT Int : 382 ms P-R-T Axes : 061 037 064 degrees QTc Int : 443 ms Normal sinus rhythm Normal ECG When compared with ECG of 11-OCT-2023 05:25, MANUAL COMPARISON REQUIRED, DATA IS UNCONFIRMED Confirmed by ANA ROSA SANCHEZ, RADHA ([id number]), film and video editor AJ LANIER ([id number]) on 10/19/2023 1:04:16 PM Referred By: DELILAH Confirmed By:RADHA OSEGUERA MD
[2023-10-10 04:54] LABS: Troponin-I HS 140 pg/mL (3.0-78.0)
[2023-10-10] MEDS: Enoxaparin 100 MG/ML Syringe 90 MG SC (05:18)
[2023-10-10] MEDS: Levothyroxine 175 MCG Tablet PO (05:24)
--- NOTE | 2023-10-10 07:23 | CON.PCM.CA_ITS ---
Documented by User: Yue BUTLER, PA 10/10/23 15:00 Assessment & Plan Assessment/Plan (1) Non-STEMI (non-ST elevated myocardial infarction): (2) Hypertension: (3) History of coronary artery disease: PLAN: * echo is pending * will stop lovenox and start heparin. Will hold plavix until after heart cath. Will start ASA 81 mg Will plan on heart cath tomorrow. This was explained to pt. * will continue Norvasc and atorvastatin. HPI Consult Data Date of Consult: 10/10/23 HPI Narrative HPI Narrative: PHILIPPE JACOBSON, is a 78 M who presented to [facility] ER last night with chest pain. It began where it was intermittent and then it was more persistent it was described as a dull burning pain on the left side of his chest. It did radiate to his back and his jaw. He does admit to some diaphoresis with the chest discomfort. He also has lightheadedness walking up a flight of steps. He was admitted to PCU for further evaluation. Initial troponin was 47 third troponin trended high at 140. He does have a history of coronary artery disease with stenting in 1999, Rohto suction due to scarring to attributed in-stent stenosis in 2000, 2005. His last heart catheterization was 4 years ago which demonstrated a small artery with 80% stenosis that was too small to be stented. He also has a history of hypertension, hyperlipidemia hypothyroidism. [facility] Medical History (Updated 10/10/23 @ 05:[address] Donell Mirza, DO) Coronary artery disease High cholesterol Hypertension Home Medications amlodipine 5 mg tablet 5 mg PO DAILY 12/07/17 [History Last Taken Unknown] aspirin 81 mg tablet,delayed release 81 mg PO QDAY 12/07/17 [History Last Taken Unknown] atorvastatin 20 mg tablet 20 mg PO ONCE 12/07/17 [History Last Taken Unknown] aspirin 325 mg capsule 325 mg PO DAILY PRN chest pain 10/09/23 [History Last Taken Unknown] cholecalciferol (vitamin D3) 25 mcg (1,000 unit) tablet (Vitamin D3) 25 mcg PO DAILY 10/09/23 [History Last Taken Unknown] levothyroxine 175 mcg tablet (Synthroid) 175 mcg PO DAILY 10/09/23 [History Last Taken Unknown] lisinopril 20 mg tablet 20 mg PO DAILY 10/09/23 [History Last Taken Unknown] metoprolol tartrate 50 mg tablet 50 mg PO BID 10/09/23 [History Last Taken Unknown] nitroglycerin 0.4 mg sublingual tablet 0.4 mg sublingual Q5M PRN chest pain 10/09/23 [History Last Taken 10/09/23] tamsulosin 0.4 mg capsule 0.4 mg PO Q24H 10/09/23 [History Last Taken Unknown] Allergy/AdvReac Type Severity Reaction Status Date / Time No Known Allergies Allergy Verified 10/09/23 21:35 Surgical History H/O heart artery stent H/O hernia repair Social History Smoking Status: Never smoker ROS Constitutional Constitutional: Denies change in weight, chills, fatigue, frequent falls, headache(s) or lethargy Eyes Eyes: Denies acute decrease in peripheral vision, blurry vision or change in vision ENT HEENT: Denies dizziness, dry mouth, epistaxis, headache(s), tinnitus or vertigo Cardiovascular Cardiovascular: Reports chest pain at rest and chest pain with activity; Denies claudication, dyspnea at rest, dyspnea on exertion, edema, irregular heart rhythm, lightheadedness, orthopnea, orthostatic symptoms, palpitations or pedal edema Respiratory/Chest Respiratory/Chest: Denies cough, dyspnea or dyspnea on exertion Gastrointestinal Gastrointestinal: Denies abdominal pain, bloating, coffee ground emesis, diarrhea, heartburn, hematemesis, hematochezia, melena or nausea Genitourinary Genitourinary: Denies hematuria Musculoskeletal Musculoskeletal: Denies myalgias, numbness or tingling Neurologic Neurologic: Denies abnormal gait, abnormal speech, memory loss, paresthesias or weakness Physical Exam Const alert, oriented x3, no apparent distress and healthy appearing HEENT normocephalic, head/scalp atraumatic, hearing grossly normal bilaterally, external ears normal, external nose normal and moist oral mucous membranes Eyes PERRL, EOMs intact bilaterally, conjunctivae normal and no scleral icterus Neck no lymphadenopathy, supple and no JVD Resp normal respiratory effort and clear to auscultation bilaterally Cardio regular rate, regular rhythm, S1 normal heart sound, S2 normal heart sound, no murmurs, no rub, no gallops, no clicks, no JVD and peripheral pulses 2+ throughout GI normal to inspection, nondistended, normoactive bowel sounds, soft to palpation, non-tender and non-distended Extremity normal to inspection, normal capillary refill, no clubbing, cyanosis or edema and no pedal edema Neuro oriented x3, CN's II-XII intact bilaterally, moves all extremities and no focal motor deficits Psych cooperative and affect normal Risk Stratification Risk Stratification Applicable: Yes Age >/= 65: Yes >/= 3 CAD Risk Factors (HTN, HLD, DM, family hx of CAD, or current smoker): Yes Aspirin Use in the Past 7 Days: Yes Severe Angina (>/= episodes in 24 hours): Yes EKG ST Changes >/= 0.5mm: No Positive Cardiac Marker: Yes JOHN Risk Stratification Score: 5 JOHN % Risk: 25% Risk Charges/Coding Visit Charges Office Visits / Consults: 36899 IP Consult L4 Objective Data Vital Signs: Vital Signs Temp Pulse Resp BP Pulse Ox O2 Del Method 98.0 F 72 16 129/83 H 97 Room Air 10/10/23 05:21 10/10/23 05:21 10/10/23 05:21 10/10/23 05:21 10/10/23 05:21 10/10/23 05:21 Oxygen Delivery Method Room Air Weight: 190 lb 11.198 oz Body Mass Index (BMI) 27.3 Intake & Output: Intake and Output for Last 24 Hours 10/08/23 10/09/23 10/10/23 23:59 23:59 23:59 Intake Total 50 / 50 Balance 50 / 50 Lab / Micro Data 10/10/23 10:37 10/09/23 22:08 Labs: Laboratory Results - last 24 hr 10/09/23 22:08: WBC 7.2, RBC 4.84, Hgb 15.0, Hct 45.4, MCV 93.8, MCH 31.0, MCHC 33.0, RDW Std Deviation 43.8, RDW Coeff of Yosvany 12.7, Plt Count 223, MPV 9.1, Immature Gran % (Auto) 0.100, Neut % (Auto) 61.3, Lymph % (Auto) 26.8, Swisher % (Auto) 8.6, Eos % (Auto) 2.2, Baso % (Auto) 1.0, Absolute Neuts (auto) 4.4, Absolute Lymphs (auto) 1.94, Nucleated RBC % 0, Sodium 137, Potassium 4.1, Chloride 105, Carbon Dioxide 31.0, Anion Gap 1 L, BUN 18, Creatinine 1.20, Estim Creat Clear Calc 50.69, Est GFR (MDRD) Af Amer 75, Est GFR (MDRD) Non-Af 62, BUN/Creatinine Ratio 15.0, Glucose 132 H, Calcium 9.1, Troponin I High Sens 47 10/10/23 00:00: Troponin I High Sens 58, Triglycerides 96, Cholesterol 154, LDL Cholesterol 83, VLDL Cholesterol 19, HDL Cholesterol 52 10/10/23 04:10: Troponin I High Sens 140 H* Cardiology Labs/Tests 10/09/23 22:08: WBC 7.2, RBC 4.84, Hgb 15.0, Hct 45.4, MCV 93.8, MCH 31.0, MCHC 33.0, Plt Count 223, MPV 9.1, Immature Gran % (Auto) 0.100, Neut % (Auto) 61.3, Lymph % (Auto) 26.8, Swisher % (Auto) 8.6, Eos % (Auto) 2.2, Baso % (Auto) 1.0, Absolute Neuts (auto) 4.4, Nucleated RBC % 0, Sodium 137, Potassium 4.1, Chloride 105, Carbon Dioxide 31.0, Anion Gap 1 L, BUN 18, Creatinine 1.20, Est GFR (MDRD) Af Amer 75, Est GFR (MDRD) Non-Af 62, BUN/Creatinine Ratio 15.0, Glucose 132 H, Calcium 9.1 10/10/23 00:00: Triglycerides 96, Cholesterol 154, LDL Cholesterol 83, VLDL Cholesterol 19, HDL Cholesterol 52 Rhythm: EKG: ECHO: Stress Test: Cardiac Cath: PCI: CT Surgery: Holter monitor: EPS: PPM: CXR: Chest CT Scan: Radiography Diagnostic Testing: Radiology Impression Chest X-Ray 10/09/23 21:52 IMPRESSION: There are no acute findings. Electronically Signed: Candelario Melvin MD at 22:00 EST Reading Location ID and State: [facility] / [place] , Service support , Documented by User: Dr. Mary Salinas MD 10/10/23 18:35 Assessment & Plan Assessment/Plan (1) Non-STEMI (non-ST elevated myocardial infarction): (2) Hypertension: (3) History of coronary artery disease: PLAN: * echo is pending * will stop lovenox and start heparin. Will hold plavix until after heart cath. Will start ASA 81 mg Will plan on heart cath tomorrow. This was explained to pt. * will continue Norvasc and atorvastatin. I personally examined this patient, reviewed all the current evaluation in the hospital This patient has a history of CAD with prior PCI and stent of LAD Now presenting with symptoms of chest pain with elevated cardiac biomarker We will continue current medical treatment symptoms improved on the current treatment We will proceed and evaluate with cardiac catheterization/right radial artery approach I concur with cardiac care plan as per midlevel note and documentation. HPI Consult Data Date of Consult: 10/10/23 [facility] Medical History (Updated 10/10/23 @ 05:[address] Donell Mirza DO) Coronary artery disease High cholesterol Hypertension Home Medications amlodipine 5 mg tablet 5 mg PO DAILY 12/07/17 [History Last Taken Unknown] aspirin 81 mg tablet,delayed release 81 mg PO QDAY 12/07/17 [History Last Taken Unknown] atorvastatin 20 mg tablet 20 mg PO ONCE 12/07/17 [History Last Taken Unknown] aspirin 325 mg capsule 325 mg PO DAILY PRN chest pain 10/09/23 [History Last Taken Unknown] cholecalciferol (vitamin D3) 25 mcg (1,000 unit) tablet (Vitamin D3) 25 mcg PO DAILY 10/09/23 [History Last Taken Unknown] levothyroxine 175 mcg tablet (Synthroid) 175 mcg PO DAILY 10/09/23 [History Last Taken Unknown] lisinopril 20 mg tablet 20 mg PO DAILY 10/09/23 [History Last Taken Unknown] metoprolol tartrate 50 mg tablet 50 mg PO BID 10/09/23 [History Last Taken Unknown] nitroglycerin 0.4 mg sublingual tablet 0.4 mg sublingual Q5M PRN chest pain 10/09/23 [History Last Taken 10/09/23] tamsulosin 0.4 mg capsule 0.4 mg PO Q24H 10/09/23 [History Last Taken Unknown] Allergy/AdvReac Type Severity Reaction Status Date / Time No Known Allergies Allergy Verified 10/09/23 21:35 Surgical History H/O heart artery stent H/O hernia repair Social History Smoking Status: Never smoker Risk Stratification Age >/= 65: Yes JOHN Risk Stratification Score: 5 JOHN % Risk: 25% Risk Lab / Micro Data 10/10/23 10:37 10/09/23 22:08
[2023-10-10] MEDS: 0.9% Saline Lock 10 ML Syringe IV (08:30)
--- NOTE | 2023-10-10 09:30 | CASEMGMT ---
RN CM Face to Face with patient for initial transition planning/care coordination assessment. RN CM introduced self and role at [facility]. Patient lying in bed, alert and oriented. Patient willing to participate in assessment and is able to answer all questions appropriately. Care providers, pharmacy, and demographics verified. Patient wishes to discharge home, denies need for home health at this time. Patient states he has no further needs or concerns at this time. CM to follow for discharge planning needs that may arise. PCP: Reena Specialists: [facility] Chantal Mcgill Pharmacy: [facility] Insurance: [employer] Prescription Benefit: Yes Living Will/HPOA: yes, Wanda Lundberg LNOK: , daughter Living Arrangements: Patient lives with in a split level home with 6-7 steps and railing between levels. Patient states he is independent and able to ambulate stairs. Transportation: self, DME/HHC: Patient has cane, crutches, higher toilets at home. No previous HHC or SNF Disposition Plan: Patient to discharge home with family support and follow-up plans in place. Abby RODRIGUEZ, RN, CM
--- NOTE | 2023-10-10 09:55 | PN.HOSP_ITS ---
Reason for Visit Reason for Visit: Diagnoses Essential (primary) hypertension (10/10/23) Non-ST elevation (NSTEMI) myocardial infarction (10/10/23) Chest pain, unspecified (10/10/23) Personal history of other diseases of the circulatory system (10/10/23) Subjective Subjective Feels well. No chest pain. Objective Data Objective Data Vital Signs: Vital Signs Temp Pulse Resp BP Pulse Ox O2 Del Method 36.6 C 80 16 141/82 H 97 Room Air 10/10/23 08:18 10/10/23 08:18 10/10/23 08:18 10/10/23 08:18 10/10/23 08:18 10/10/23 08:23 Oxygen Delivery Method Room Air Weight: 86.5 kg Body Mass Index (BMI) 27.3 Intake & Output: Intake and Output for Last 24 Hours 10/08/23 10/09/23 10/10/23 23:59 23:59 23:59 Intake Total 50 / 50 Balance 50 / 50 Lab / Micro Data 10/10/23 10:37 10/09/23 22:08 Labs: Laboratory Results - last 24 hr 10/09/23 22:08: WBC 7.2, RBC 4.84, Hgb 15.0, Hct 45.4, MCV 93.8, MCH 31.0, MCHC 33.0, RDW Std Deviation 43.8, RDW Coeff of Yosvany 12.7, Plt Count 223, MPV 9.1, Immature Gran % (Auto) 0.100, Neut % (Auto) 61.3, Lymph % (Auto) 26.8, Mcminn % (Auto) 8.6, Eos % (Auto) 2.2, Baso % (Auto) 1.0, Absolute Neuts (auto) 4.4, Absolute Lymphs (auto) 1.94, Nucleated RBC % 0, Sodium 137, Potassium 4.1, Chloride 105, Carbon Dioxide 31.0, Anion Gap 1 L, BUN 18, Creatinine 1.20, Estim Creat Clear Calc 50.69, Est GFR (MDRD) Af Amer 75, Est GFR (MDRD) Non-Af 62, BUN/Creatinine Ratio 15.0, Glucose 132 H, Calcium 9.1, Troponin I High Sens 47 10/10/23 00:00: Troponin I High Sens 58, Triglycerides 96, Cholesterol 154, LDL Cholesterol 83, VLDL Cholesterol 19, HDL Cholesterol 52 10/10/23 04:10: Troponin I High Sens 140 H* Radiography Diagnostic Testing: Radiology Impression Chest X-Ray 10/09/23 21:52 IMPRESSION: There are no acute findings. Electronically Signed: Candelario Melvin MD at 22:00 EST Reading Location ID and State: [facility] / [place] , Service support , Physical Exam Const alert and no apparent distress HEENT head/scalp atraumatic Resp normal respiratory effort, no retractions, no use of accessory muscles and clear to auscultation bilaterally Cardio regular rate, regular rhythm, S1 normal heart sound and S2 normal heart sound GI normal to inspection, nondistended, normoactive bowel sounds and soft to palpation Assessment & Plan Assessment/Plan (1) Chest pain: QUALIFIERS: Chest pain type: unspecified Qualified Code(s): R07.9 - Chest pain, unspecified PLAN: NSTEMI. Troponins up to 140 Continue aspirin, high intensity statin, clopidogrel and heparin gtt. Echo cardiology consulted plan for heart cath on 10/11 (2) Uncontrolled hypertension: PLAN: Improved Continue lisinopril, metoprolol tartrate and amlodipine PLAN: Plan Chronic conditions: * hyperlipidemia - Resume statin and check lipid profile this admission. * Hypothyroidism - Continue Synthroid as previous and check TSH this admission. * BPH - Tamsulosin to be continued as previous. DVT prophylaxis - Lovenox 40 mg subcu daily. Charges/Coding Visit Charges Inpatient E&M: 61616 Subs Hosp L2
[2023-10-10 10:57] LABS: Hematocrit 46.4 % (40-54); Hemoglobin 15.6 g/dL (13.0-16.5); Mean Corp Hgb Conc 33.6 g/dL (32-36); Mean Corpuscular Hgb 31.5 pg (27.0-32.0); Mean Corpuscular Volume 93.5 fL (80-94); Mean Platelet Vol. 9.1 fl (6.2-12.0); Platelet Count 226 K/mm3 (150-450); RBC Distribution Width CV 12.8 % (11.6-14.6); RBC Distribution Width SD 43.9 fl (35.1-43.9); Red Blood Count 4.96 M/mm3 (4.6-6.2); White Blood Count 7.5 K/mm3 (4.4-11.0)
[2023-10-10 11:14] LABS: Prothrombin Time (Protime)PT. 13.7 SECONDS (11.7-14.9)
[2023-10-10 11:15] LABS: Partial Thromboplast Time 37.9 Seconds (24.1-36.2)
[2023-10-10] MEDS: HEPARIN/D5w 25,000 UNITS 25,000 UNITS/250 ML IV.SOLN. 12 UNITS CONT INF (11:28)
[2023-10-10] MEDS: Cholecalciferol (VIT D3) 25 MCG TABLET (1,000 UNITS) PO (11:29)
[2023-10-11] VITALS (14 sets, daily range): BP systolic 106–164; BP diastolic 65–89; PULSE 80–102; RESP 14–18; TEMP 36.3–36.9; O2SAT 96–98
[2023-10-11 01:55] LABS: Partial Thromboplast Time 84.9 Seconds (24.1-36.2)
--- NOTE | 2023-10-11 05:55 | EKG12_ITS ---
Test Reason : AM EKG Blood Pressure : / mmHG Vent. Rate : 088 BPM Atrial Rate : 088 BPM P-R Int : 160 ms QRS Dur : 092 ms QT Int : 384 ms P-R-T Axes : 071 063 077 degrees QTc Int : 464 ms Normal sinus rhythm Normal ECG When compared with ECG of 10-OCT-2023 01:55, MANUAL COMPARISON REQUIRED, DATA IS UNCONFIRMED Confirmed by NAA ROSA SANCHEZ, RADHA ([id number]), associate editor AJ LANIER ([id number]) on 10/19/2023 1:05:51 PM Referred By: Confirmed By:RADHA OSEGUERA MD
[2023-10-11] MEDS: amLODIPine 5 MG Tablet PO ×2 (06:21→20:51)
[2023-10-11] MEDS: Levothyroxine 175 MCG Tablet PO (06:21)
[2023-10-11] MEDS: Aspirin E.C. 81 MG Tablet PO (06:21)
--- NOTE | 2023-10-11 08:26 | PN.HOSP_ITS ---
Reason for Visit Reason for Visit: Diagnoses Essential (primary) hypertension (10/10/23) Non-ST elevation (NSTEMI) myocardial infarction (10/10/23) Chest pain, unspecified (10/10/23) Personal history of other diseases of the circulatory system (10/10/23) Subjective Subjective Feels well. No chest pain. Objective Data Objective Data Vital Signs: Vital Signs Temp Pulse Resp BP Pulse Ox O2 Del Method 36.6 C 83 14 139/86 H 97 Room Air 10/11/23 06:15 10/11/23 06:15 10/11/23 06:15 10/11/23 06:15 10/11/23 06:15 10/11/23 07:35 Oxygen Delivery Method Room Air Weight: 86.5 kg Body Mass Index (BMI) 27.3 Intake & Output: Intake and Output for Last 24 Hours 10/09/23 10/10/23 10/11/23 23:59 23:59 23:59 Intake Total 133.8 / 133.8 65.33 / 65.33 Balance 133.8 / 133.8 65.33 / 65.33 Lab / Micro Data 10/10/23 10:37 10/09/23 22:08 Labs: Laboratory Results - last 24 hr 10/10/23 10:37: WBC 7.5, RBC 4.96, Hgb 15.6, Hct 46.4, MCV 93.5, MCH 31.5, MCHC 33.6, RDW Std Deviation 43.9, RDW Coeff of Yosvany 12.8, Plt Count 226, MPV 9.1, PT 13.7, INR 1.0, APTT 37.9 H 10/10/23 17:40: APTT 94.0 H* 10/11/23 01:33: APTT 84.9 H Physical Exam Const alert and no apparent distress Constitutional Narrative: Up in chair. Afebrile. HEENT head/scalp atraumatic Resp normal respiratory effort, no retractions and no use of accessory muscles Cardio regular rate, regular rhythm, S1 normal heart sound and S2 normal heart sound Neuro Sensorium / Orientation: awake and alert Assessment & Plan Assessment/Plan (1) Chest pain: QUALIFIERS: Chest pain type: unspecified Qualified Code(s): R07.9 - Chest pain, unspecified PLAN: NSTEMI. Troponins up to 140 Continue aspirin, high intensity statin, clopidogrel and heparin gtt. Echo cardiology consulted, plan for heart cath on 10/11 (2) Uncontrolled hypertension: PLAN: Improved Continue lisinopril, metoprolol tartrate and amlodipine PLAN: Plan Chronic conditions: * hyperlipidemia - Resume statin and check lipid profile this admission. * Hypothyroidism - Continue Synthroid as previous and check TSH this admission. * BPH - Tamsulosin to be continued as previous. DVT prophylaxis - Lovenox 40 mg subcu daily. Charges/Coding Visit Charges Inpatient E&M: 07317 Subs Hosp L2
[2023-10-11 09:16] LABS: Partial Thromboplast Time 66.5 Seconds (24.1-36.2)
--- NOTE | 2023-10-11 11:46 | PN.CARD_ITS ---
<Statement entered by Mary Salinas MD - 10/11/23 17:19> Pt seen & evaluated w/DAYNA. I personally interviewed & exam the pt. I was involved in all aspects of pt's orders, interpretation of results & treatment Subjective Subjective Pt seen and examined today. He did not have any CP/SOB but did have a fast HR last night and was aware of this. Afib with RVR was noted on telemetry. He does have a hx of PAF. Objective Data Vital Signs: Vital Signs Temp Pulse Resp BP Pulse Ox O2 Del Method 97.8 F 83 14 139/86 H 97 Room Air 10/11/23 06:15 10/11/23 06:15 10/11/23 06:15 10/11/23 06:15 10/11/23 06:15 10/11/23 07:35 Oxygen Delivery Method Room Air Weight: 190 lb 11.198 oz Body Mass Index (BMI) 27.3 Intake & Output: Intake and Output for Last 24 Hours 10/09/23 10/10/23 10/11/23 23:59 23:59 23:59 Intake Total 133.8 / 133.8 139.28 / 139.28 Balance 133.8 / 133.8 139.28 / 139.28 Lab / Micro Data 10/10/23 10:37 10/09/23 22:08 Labs: Laboratory Results - last 24 hr 10/10/23 17:40: APTT 94.0 H* 10/11/23 01:33: APTT 84.9 H 10/11/23 08:23: APTT 66.5 H Cardiology Labs/Tests 10/10/23 17:40: APTT 94.0 H* 10/11/23 01:33: APTT 84.9 H 10/11/23 08:23: APTT 66.5 H Rhythm: NSR, last night had Afib with RVR Physical Exam Const alert and no apparent distress HEENT head/scalp atraumatic Eyes PERRL, EOMs intact bilaterally, conjunctivae normal and no scleral icterus Neck supple and no JVD Resp normal respiratory effort, no retractions, no use of accessory muscles and clear to auscultation bilaterally Cardio regular rate, regular rhythm, S1 normal heart sound, S2 normal heart sound, no murmurs, no rub, no gallops, no clicks and no JVD GI normal to inspection, nondistended, normoactive bowel sounds and soft to palpation Assessment & Plan Assessment/Plan (1) Non-STEMI (non-ST elevated myocardial infarction): (2) Hypertension: (3) History of coronary artery disease: (4) PAF (paroxysmal atrial fibrillation): PLAN: Plan * echo is pending * will proceed with heart cath today. based on findings will decide if we need to add BONNIE-I/ BB. Will continue with Lipitor, ASA, Plavix * Pt did have PAF noted on telemetry, he was aware of this. Will need to start BB and Eliquis. Will do this after cath. 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 Charges/Coding Visit Charges Inpatient E&M: 46428 [facility] Hosp L3
[2023-10-11] MEDS: Cholecalciferol (VIT D3) 25 MCG TABLET (1,000 UNITS) PO (12:47)
--- NOTE | 2023-10-11 14:04 | PCM.OP.PRO ---
Procedure Report Date of Procedure: 10/11/23 Procedure performed; 1. Moderate sedation 2. Selective left coronary angiography. 3. Selective right coronary angiography 4. IVUS of left anterior descending artery 5. IFR of the mid left circumflex 6. Placement of TR band to close the right radial artery arteriotomy site Preprocedure diagnosis; 78-year-old patient presented with symptoms of retrosternal chest pain Patient had extensive cardiac history Has history of myocardial infarction in 2001 where he had PCI and stent, using bare-metal stent Subsequently in 2005 she had PCI stent of LAD using drug-eluting stent. Presenting with retrosternal chest discomfort which resolved and treated medically here during this admission and also on cardiac telemetry noted patient had episode of paroxysmal A-fib and converted to sinus rhythm. Consent; Risk and benefit of procedure explained detail patient asked to proceed informed consent obtained. Diagnostic and interventional catheters used; 1. 6 Burmese sheath in the right radial artery/trauma 2. 5 Burmese JL 3 5 3. 5 Burmese JR4 6. 6 Burmese, 3.5 JL, guide catheter 7. 0.014 180 cm extra floppy run-through guide wire/straight 8. IFR/coronary IFR wire 9. Coronary IVUS catheter. Medication given in the Director Technical Patient was given a total of 8000 of heparin 3000 units through the right radial artery sheath 5000 units IV. Also patient was given Plavix this morning. Procedure in detail; Under fluoroscopic guidance we will proceed with 5 Burmese JL 3.5 advanced [place] to cannulate the left main, multiple views of the left coronary System obtained Following this catheter exchanged for a 5 Burmese JR4 and multiple views of the RCA obtained Following this the angiographic views were studied We noted patient has a calcified proximal LAD prior to the stent Therefore we will proceed with intravascular ultrasound MLA revealed 4.8 mm2, which is based on IVUS criteria is not significant atherosclerosis. Also will perform IFR of the mid left circumflex which revealed 0.9 to 0.91 which is normal Finding of coronary angiography; 1. Left main coronary artery normal to graphically bifurcating into LAD and left circumflex 2. Left anterior descending artery, calcified at the ostium patency of the LAD stent noted Which is a long segment of stent Sidebranch D1 which is jailed at the significant atherosclerosis of around 90% small to moderate size. LAD distally normal angiographically 3. Proximal circumflex artery had calcified around 30% stenosis The mid left circumflex artery at the site of a large diagonal had at least around 50-60% This has been evaluated further by IFR which showed IFR 0.92/0.93 The OM1 branch diffuse atherosclerosis proximally of around 60 to 70% 4. RCA large dominant with no significant atherosclerosis Conclusion recommendation This patient has significant coronary artery disease Patency of the LAD stent demonstrated ostial and proximal LAD had nonobstructive atherosclerosis based on IVUS criteria And the IFR of the mid left circumflex is normal RCA had no significant atherosclerosis Patient will be treated with medical therapy Also noted patient had episode of paroxysmal A-fib while. On telemetry Patient will require follow-up with the cardiology team at [facility] as well we will start on apixaban No complication in the Director Technical Mary Salinas MD,FACC,[facility] [place]
--- NOTE | 2023-10-11 15:05 | PN_ITS ---
<Statement entered by Mary Salinas MD - 10/11/23 17:16> Pt seen & evaluated w/DAYNA. I personally interviewed & exam the pt. I was involved in all aspects of pt's orders, interpretation of results & treatment Progress Note Pt did not have CAD that required stenting. Will treat medically. He does have PAF, will start on Eliquis 5 mg a day in addition to Plavix. Will d/c his ASA. At his next f/u appt would consider stopping plavix and resuming his ASA. Will also start on low dose metoprolol for his PAF that was noted.
--- NOTE | 2023-10-11 16:06 | CASEMGMT ---
FRANCISCO J ALBRIGHT NOTE: Per Dr Salinas, pt to discharge home on Eliquis. FRANCISCO J ALBRIGHT to room. Introduced self and role. Pt provided w/Eliquis 30-day savings card and instructed on use. Questions answered. Pt states he now prefers to get his meds @ discharge from [facility] Retail pharmacy. FRANCISCO J ALBRIGHT updated [employer]. Pt made aware that [facility] pharmacy will apply the 30-day savings card and instructed to talk to his physician if refills are not affordable. He voices understanding. He was also made aware of website re: possible financial assistance if he is unable to afford medication. He states he knows he would not qualify for this. He thanked RN JOSE RAMON for the information. Todd DORANN FRANCISCO J ALBRIGHT
[2023-10-11 16:16] LABS: Partial Thromboplast Time 248.2 Seconds (24.1-36.2)
[2023-10-11] MEDS: Atorvastatin Calcium 20 MG Tablet PO (20:51)
[2023-10-11] MEDS: Metoprolol Tartrate 25 MG Tablet PO (20:53)
[2023-10-11] MEDS: APIXABAN 5 MG TABLET PO (20:53)
[2023-10-12 01:11] VITALS: PULSE 88
[2023-10-12] MEDS: Levothyroxine 175 MCG Tablet PO (05:09)
[2023-10-12 05:13] VITALS: BP 147/73; PULSE 76; RESP 16; TEMP 36.4
[2023-10-12 08:35] VITALS: BP 120/73; PULSE 74; RESP 18; TEMP 36.6; O2SAT 95
[2023-10-12 08:38] VITALS: PULSE 74
[2023-10-12] MEDS: Metoprolol Tartrate 25 MG Tablet PO (08:38)
[2023-10-12] MEDS: Cholecalciferol (VIT D3) 25 MCG TABLET (1,000 UNITS) PO (08:38)
[2023-10-12] MEDS: Clopidogrel Bisulfate 75 MG Tablet PO (08:38)
[2023-10-12] MEDS: APIXABAN 5 MG TABLET PO (08:38)
[2023-10-12] MEDS: amLODIPine 5 MG Tablet PO (08:39)
--- NOTE | 2023-10-12 09:50 | PN.HOSP_ITS ---
Reason for Visit Reason for Visit: Diagnoses Essential (primary) hypertension (10/10/23) Non-ST elevation (NSTEMI) myocardial infarction (10/10/23) Paroxysmal atrial fibrillation (10/10/23) Chest pain, unspecified (10/10/23) Personal history of other diseases of the circulatory system (10/10/23) Subjective Subjective Feels well. Denies complaints. Objective Data Objective Data Vital Signs: Vital Signs Temp Pulse Resp BP Pulse Ox O2 Del Method 36.6 C 74 18 120/73 95 Room Air 10/12/23 08:35 10/12/23 08:38 10/12/23 08:35 10/12/23 08:35 10/12/23 08:35 10/12/23 08:35 Oxygen Delivery Method Room Air Weight: 86.5 kg Body Mass Index (BMI) 27.3 Intake & Output: Intake and Output for Last 24 Hours 10/10/23 10/11/23 10/12/23 23:59 23:59 23:59 Intake Total 133.8 / 133.8 639.28 / 1039.28 520 / 520 Balance 133.8 / 133.8 639.28 / 1039.28 520 / 520 Lab / Micro Data 10/10/23 10:37 10/09/23 22:08 Labs: Laboratory Results - last 24 hr 10/11/23 14:12: APTT 248.2 H* Radiography Diagnostic Testing: Radiology Impression Echocardiogram 10/10/23 01:13 Interpretation Summary The estimated ejection fraction is 55-60 %. Normal LV systolic function Contrast/using Definity For better delineation of the endocardial borders used Ordering Physician: Donell Mirza Referring Physician: Brannon Valles Performed By: Ted Herrera RCS Physical Exam Const alert and no apparent distress Resp normal respiratory effort and no retractions Assessment & Plan Assessment/Plan (1) Chest pain: QUALIFIERS: Chest pain type: unspecified Qualified Code(s): R07.9 - Chest pain, unspecified PLAN: NSTEMI. Troponins up to 140 Continue aspirin, high intensity statin, clopidogrel and heparin gtt. Echo non obstructive CAD. Medical mgmt. (2) Uncontrolled hypertension: PLAN: Improved Continue lisinopril, metoprolol tartrate and amlodipine (3) PAF (paroxysmal atrial fibrillation): PLAN: started on apixaban and metoprolol tartrate PLAN: Plan Chronic conditions: * hyperlipidemia - Resume statin and check lipid profile this admission. * Hypothyroidism - Continue Synthroid as previous and check TSH this admission. * BPH - Tamsulosin to be continued as previous. Discharge home.
--- NOTE | 2023-10-12 10:17 | PCM.DC.SUM ---
Providers Date of Admission: 10/10/23 Primary Care Physician: Dr. Brannon Valles MD Consultations 10/10/23 05:02 Consult: Cardiology Routine Consulting Provider: Thom Foster Reason for Consult: Non-STEMI EMERGENT Consult: No Notified: No Date Notified: 10/10/23 Time Notified: 05:02 Method of Consult:: In-Person Comments:: Patient ruled in with an elevated 2nd troponin 140. 10/10/23 07:39 Consult: Cardiology Routine Consulting Provider: Mary Salinas Reason for Consult: troponin 140 EMERGENT Consult: No Notified: Yes Date Notified: 10/10/23 Time Notified: 07:39 Method of Notification: Text Reason For Visit: CHEST PAIN Diagnosis Discharge Diagnosis (1) Chest pain: Status: Acute Code(s): R07.9 - Chest pain, unspecified Qualifiers: Chest pain type: unspecified Qualified Code(s): R07.9 - Chest pain, unspecified Plan: NSTEMI. Troponins up to 140 Continue aspirin, high intensity statin, clopidogrel and heparin gtt. Echo non obstructive CAD. Medical mgmt. (2) Uncontrolled hypertension: Status: Acute Code(s): I10 - Essential (primary) hypertension Plan: Improved Continue lisinopril, metoprolol tartrate and amlodipine (3) PAF (paroxysmal atrial fibrillation): Status: Acute Code(s): I48.0 - Paroxysmal atrial fibrillation Plan: started on apixaban and metoprolol tartrate Patient concerned about the cost with apixaban. Told him to run through his insurance. Patient was inquiring about warfarin as his brother gets that checked monthly in regards to his INR. I told the patient that likely the patient is gone to the point where he can be checked monthly but if he were to be started on warfarin now would not be checked much more frequently. Also told him of the issues in regards to foods as well as certain medications, including antibiotics and if he would not to be eating that that could all affect his INR. Plan Chronic conditions: hyperlipidemia - Resume statin and check lipid profile this admission. Hypothyroidism - Continue Synthroid as previous and check TSH this admission. BPH - Tamsulosin to be continued as previous. Discharge home. Medications at Discharge Home Medications amlodipine 5 mg tablet 5 mg PO DAILY 12/07/17 atorvastatin 20 mg tablet 20 mg PO ONCE 12/07/17 cholecalciferol (vitamin D3) 25 mcg (1,000 unit) tablet (Vitamin D3) 25 mcg PO DAILY 10/09/23 levothyroxine 175 mcg tablet (Synthroid) 175 mcg PO DAILY 10/09/23 lisinopril 20 mg tablet 20 mg PO DAILY 10/09/23 nitroglycerin 0.4 mg sublingual tablet 0.4 mg sublingual Q5M PRN chest pain 10/09/23 tamsulosin 0.4 mg capsule 0.4 mg PO Q24H 10/09/23 apixaban 5 mg tablet (Eliquis) 5 mg PO BID #30 tabs 10/12/23 clopidogrel 75 mg tablet 75 mg PO DAILY #30 tabs 10/12/23 metoprolol tartrate 25 mg tablet 25 mg PO BID #60 tabs 10/12/23 Hospital Course Operations None Procedures 2-D Echocardiogram and Cardiac catheterization Summary of Care Provided Minutes Spent on Discharge: 42 Hospital Course: Patient presents with chest pain. Found to have a non-ST ovation myocardial infarction. Patient underwent cardiac catheterization that showed nonobstructive coronary disease. Medical management was proceeded. Patient did develop paroxysmal atrial fibrillation. Patient require apixaban as well as clopidogrel and atorvastatin upon discharge. Weight / BMI Weight Weight: 86.5 kg Body Mass Index (BMI) 27.3 ABG / Lab / Microbiology Data 10/10/23 10:37 10/09/23 22:08 Laboratory: Laboratory Results - last 24 hr 10/11/23 14:12: APTT 248.2 H* Radiography Diagnostic Testing: Radiology Impression Echocardiogram 10/10/23 01:13 Interpretation Summary The estimated ejection fraction is 55-60 %. Normal LV systolic function Contrast/using Definity For better delineation of the endocardial borders used Ordering Physician: Donell Mirza Referring Physician: Brannon Valles Performed By: Ted Herrera RCS D/C Instructions Discharge Diet: Low fat / Low cholesterol Meaningful Use Info Meaningful Use Diagnoses (Choose all that apply): None applicable and AMI AMI/Post PCI/Angioplasty Aspirin given w/in 24hrs of arrival?: Yes ASA at discharge?: No Reason ASA not ordered:: Warfarin rx at discharge (Apixaban) Antiplatelet Therapy at Discharge:: Yes Statins at discharge?: Yes Chris/ARB at discharge?: Yes Beta Jailyn at discharge?: Yes Done w/ Acute NC measure.: Yes Documented LVEF (%): 55 Discharge Plan Admission Admit Date/Time: 10/10/23 05:00 Primary Reason for Your Visit: NSTEMI Attending Provider: Kiet Sargent Primary Care Provider: Brannon Valles Consulting Providers: Donell Mirza; Mary Salinas Instructions Additional Instructions / Restrictions: He had myocardial infarction but your cardiac catheterization did not warrant any stenting. Cardiology is recommending medical management. He also developed paroxysmal atrial fibrillation which we are recommending you being on apixaban. Discharge Orders/Prescriptions Prescriptions: New Eliquis 5 mg Tablet 5 mg PO BID Qty: 30 0RF clopidogrel 75 mg Tablet 75 mg PO DAILY Qty: 30 0RF metoprolol tartrate 25 mg Tablet 25 mg PO BID Qty: 60 0RF Continued atorvastatin 20 mg tablet 20 mg PO ONCE amlodipine 5 mg tablet 5 mg PO DAILY levothyroxine [Synthroid] 175 mcg tablet 175 mcg PO DAILY lisinopril 20 mg tablet 20 mg PO DAILY tamsulosin 0.4 mg capsule 0.4 mg PO Q24H cholecalciferol (vitamin D3) [Vitamin D3] 25 mcg (1,000 unit) tablet 25 mcg PO DAILY nitroglycerin 0.4 mg tablet, sublingual 0.4 mg sublingual Q5M PRN (Reason: chest pain) Rx Instructions: do not exceed 3 doses per episode Discontinued aspirin 81 mg tablet,delayed release (DR/EC) 81 mg PO QDAY metoprolol tartrate 50 mg tablet 50 mg PO BID aspirin 325 mg capsule 325 mg PO DAILY PRN (Reason: chest pain) Referrals / Follow Up: [facility] [Provider Group] - Within 1 Month Brannon Valles MD [Primary Care Provider] - Within 2 Weeks Disposition Disposition (needs filled in before D/C Order can be placed): Home, Self Care Charges/Coding Visit Charges Inpatient E&M: 04937 Disch Hosp >30min
--- NOTE | 2023-10-12 11:17 | PN.CARD_ITS ---
<Statement entered by Mary Salinas MD - 10/12/23 17:17> Pt seen & evaluated w/DAYNA. I personally interviewed & exam the pt. I was involved in all aspects of pt's orders, interpretation of results & treatment Subjective Subjective Pt seen and examined today. He did not have any CP/SOB. No afib was noted on on monitor last night. Objective Data Vital Signs: Vital Signs Temp Pulse Resp BP Pulse Ox O2 Del Method 98 F 74 18 120/73 95 Room Air 10/12/23 08:35 10/12/23 08:38 10/12/23 08:35 10/12/23 08:35 10/12/23 08:35 10/12/23 08:35 Oxygen Delivery Method Room Air Weight: 190 lb 11.198 oz Body Mass Index (BMI) 27.3 Intake & Output: Intake and Output for Last 24 Hours 10/10/23 10/11/23 10/12/23 23:59 23:59 23:59 Intake Total 133.8 / 133.8 639.28 / 1039.28 520 / 520 Balance 133.8 / 133.8 639.28 / 1039.28 520 / 520 Lab / Micro Data 10/10/23 10:37 10/09/23 22:08 Labs: Laboratory Results - last 24 hr 10/11/23 14:12: APTT 248.2 H* Cardiology Labs/Tests 10/11/23 14:12: APTT 248.2 H* Rhythm: NSR Radiography Diagnostic Testing: Radiology Impression Echocardiogram 10/10/23 01:13 Interpretation Summary The estimated ejection fraction is 55-60 %. Normal LV systolic function Contrast/using Definity For better delineation of the endocardial borders used Ordering Physician: Donell Mirza Referring Physician: Brannon Valles Performed By: Ted Herrera RCS Physical Exam Const alert and no apparent distress HEENT head/scalp atraumatic Eyes PERRL, EOMs intact bilaterally, conjunctivae normal and no scleral icterus Neck supple and no JVD Resp normal respiratory effort, no retractions, no use of accessory muscles and clear to auscultation bilaterally Cardio regular rate, regular rhythm, S1 normal heart sound, S2 normal heart sound, no m urmurs, no rub, no gallops, no clicks and no JVD GI normal to inspection, nondistended, normoactive bowel sounds and soft to palpation Assessment & Plan Assessment/Plan (1) Non-STEMI (non-ST elevated myocardial infarction): (2) Hypertension: (3) History of coronary artery disease: (4) PAF (paroxysmal atrial fibrillation): PLAN: Plan * echo demonstrated an EF of 55-60% * Heart cath yesterday demonstrated: Left main coronary artery normal to graphically bifurcating into LAD and left circumflex. Left anterior descending artery, calcified at the ostium patency of the LAD stent noted Which is a long segment of stent. Sidebranch D1 which is jailed at the significant atherosclerosis of around 90% small to moderate size. LAD distally normal angiographically. Proximal circumflex artery had calcified around 30% stenosis. The mid left circumflex artery at the site of a large diagonal had at least around 50-60%. This has been evaluated further by IFR which showed IFR 0.92/0.93. The OM1 branch diffuse atherosclerosis proximally of around 60 to 70%. RCA large dominant with no significant atherosclerosis. Medical management was recommended. * With his elevated troponin will add Lisinopril. He will continue with metoprolol, Lipitor, ASA, Plavix * Pt did have PAF noted on telemetry, he was aware of this. Will continue with metoprolol and eliquis. He does have a CHADVASC2 of 4. * After d/c he will need to follow with his international nurse. Charges/Coding Visit Charges Inpatient E&M: 12311 Subs Hosp L3
--- NOTE | 2023-10-12 12:26 | CASEMGMT ---
FRANCISCO J ALBRIGHT called [facility] retail RX to inquire about cost of Eliquis, copay is $47. FRANCISCO J ALBRIGHT in to updated patient. Patient states copay is affordable and will save Eliquis savings card for later date. Patient denied further needs at discharge. Patient had no further questions or concerns.
[2023-10-12 12:51] VITALS: BP 147/71; PULSE 69; RESP 18; TEMP 36.6; O2SAT 97
== END 2023-10-12 13:27 | disposition home or self-care (01) | DRG 282 ==
LOC: ED 10-10 00:53 → PCU 10-10 01:16
PROVIDERS: Internal Medicine Interventional Cardiology; Physician Assistant Medical; Admitting Provider Internal Medicine; Emergency Provider Emergency Medicine; PCP Family Medicine
DX: I21.4 Non-ST elevation (NSTEMI) myocardial infarction (principal); E03.9 Hypothyroidism, unspecified; I48.0 Paroxysmal atrial fibrillation; I10 Essential (primary) hypertension; I25.10 Atherosclerotic heart disease of native coronary artery without angina pectoris; E78.00 Pure hypercholesterolemia, unspecified; I25.2 Old myocardial infarction; N40.0 Benign prostatic hyperplasia without lower urinary tract symptoms; Z79.899 Other long term (current) drug therapy; Z95.5 Presence of coronary angioplasty implant and graft
CPT/HCPCS: 36415; 71045; 80048; 80061; 84484; 85025; 85027; 85610; 85730; 92978; 93005; 93306; 93454; 93571; 99152; 99153; 99285; J7040; Q9957; Q9967; A4216; C1753; C1769; C1887; C1894; C8929

== ENCOUNTER → 2024-03-08 | Outpatient (CLI) | payer MEDICARE, SELFPAY ==
[2024-03-08 11:04] LABS: Anion Gap 5 (5-15); BUN 15 mg/dL (7-18); BUN/Creat Ratio 16.9 RATIO (10-20); Chloride 109 mmol/L (98-107); Creatinine, Serum 0.89 mg/dL (0.70-1.30); EST Glomerular Filtration Rate 87 mL/min (>60); Est Glom Filt Rate - Afr Amer 106 mL/min (>60); Free T3 2.8 pg/mL (2.18-3.98); Glucose 97 mg/dL (74-106); Potassium 3.9 mmol/L (3.5-5.1); Sodium Level 139 mmol/L (136-145); T4 Free Direct 1.92 ng/dL (0.76-1.46); Thyroid Stim Hormone (TSH) 0.08 uIU/mL (0.358-3.74)
== END | disposition home or self-care (01) ==
LOC: MFPLAB 09:12
PROVIDERS: PCP Family Medicine; Visit Provider Family Medicine
DX: E03.9 Hypothyroidism, unspecified (principal); I10 Essential (primary) hypertension
CPT/HCPCS: 36415; 80048; 84439; 84443; 84481

== ENCOUNTER → 2024-06-05 | Outpatient (CLI) | payer MEDICARE, SELFPAY ==
[2024-06-06 10:10] LABS: Anion Gap 5 (5-15); BUN 17 mg/dL (7-18); BUN/Creat Ratio 18.2 RATIO (10-20); Calcium,Total 9.2 mg/dL (8.5-10.1); Chloride 107 mmol/L (98-107); Creatinine, Serum 0.94 mg/dL (0.70-1.30); EST Glomerular Filtration Rate 82 mL/min (>60); Est Glom Filt Rate - Afr Amer 100 mL/min (>60); Free T3 2.9 pg/mL (2.18-3.98); Glucose 100 mg/dL (74-106); Potassium 4.1 mmol/L (3.5-5.1); Sodium Level 139 mmol/L (136-145)
== END | disposition home or self-care (01) ==
PROVIDERS: PCP Family Medicine; Visit Provider Ophthalmology
DX: G70.00 Myasthenia gravis without (acute) exacerbation (principal); H53.2 Diplopia; E03.9 Hypothyroidism, unspecified
CPT/HCPCS: 36415; 80048; 84439; 84443; 84481

== ENCOUNTER → 2024-09-05 | Outpatient (CLI) | payer MEDICARE, SELFPAY ==
[2024-09-05 13:30] LABS: Anion Gap 7 (5-15); BUN 14 mg/dL (7-18); BUN/Creat Ratio 14.1 RATIO (10-20); Calcium,Total 9.2 mg/dL (8.5-10.1); Chloride 106 mmol/L (98-107); Cholesterol 148 mg/dL (200); EST Glomerular Filtration Rate 77 mL/min (>60); Est Glom Filt Rate - Afr Amer 93 mL/min (>60); Free T3 2.9 pg/mL (2.18-3.98); Glucose 103 mg/dL (74-106); High Density Lipoprotein 60 mg/dL; Potassium 4.4 mmol/L (3.5-5.1); Sodium Level 139 mmol/L (136-145); T4 Free Direct 1.62 ng/dL (0.76-1.46); Thyroid Stim Hormone (TSH) 0.057 uIU/mL (0.358-3.740); Triglycerides 54 mg/dL; Very Low Density Lipoprotein 11 mg/dL (5-40)
== END | disposition home or self-care (01) ==
LOC: MTLAB 10:45
PROVIDERS: PCP Family Medicine; Referring Provider Family Medicine; Visit Provider Family Medicine
DX: E03.9 Hypothyroidism, unspecified (principal); I10 Essential (primary) hypertension
CPT/HCPCS: 36415; 80048; 80061; 84439; 84443; 84481

== ENCOUNTER → 2024-09-18 | Outpatient (CLI) | payer MEDICARE, SELFPAY ==
--- NOTE | 2024-09-18 14:58 | RAD_ITS ---
STUDY: X-RAY - UNILATERAL RIBS ( RIGHT ) REASON FOR EXAM: Male, 79 years old. rib injury TECHNIQUE: 4 view(s) of the ribs. COMPARISON: None. FINDINGS: Normal visualized ribs without a demonstrated fracture. The visualized lung is clear and expanded. RAD/Ribs Unil 2V No CXR IMPRESSION: Normal x-ray examination of the ribs. Electronically Signed: Sherwin King MD at 10:19 EDT ,
== END | disposition home or self-care (01) ==
LOC: MTRAD 14:45
PROVIDERS: PCP Family Medicine; Referring Provider Family Medicine; Visit Provider Family Medicine
DX: R07.89 Other chest pain (principal)
CPT/HCPCS: 71100

== ENCOUNTER → 2025-03-07 | Outpatient (CLI) | payer MEDICARE, SELFPAY ==
[2025-03-07 13:22] LABS: Free T3 2.7 pg/mL (2.18-3.98); Thyroid Stim Hormone (TSH) 0.151 uIU/mL (0.300-4.200)
== END | disposition home or self-care (01) ==
LOC: MTLAB 09:59
PROVIDERS: PCP Family Medicine; Referring Provider Family Medicine; Visit Provider Family Medicine
DX: E03.9 Hypothyroidism, unspecified (principal)
CPT/HCPCS: 36415; 84439; 84443; 84481

== ENCOUNTER → 2025-09-02 | Outpatient (CLI) | payer MEDICARE, SELFPAY ==
[2025-09-02 13:00] LABS: AST(SGOT) 27 U/L (<=37); Alanine Aminotransfer ALT/SGPT 13 U/L (<=46); Albumin, Serum 4.2 g/dL (3.4-4.8); Alkaline Phosphatase 78 U/L (40-129); Anion Gap 11 (5-15); BUN 19 mg/dL (4-19); BUN/Creat Ratio 20.6 RATIO (10-20); Calcium,Total 9.5 mg/dL (7.6-11.0); Carbon Dioxide 25.3 mmol/L (21.0-32.0); Chloride 104 mmol/L (98-108); Cholesterol 150 mg/dL (<=200); Free T3 2.8 pg/mL (2.18-3.98); Globulin 2.7 g/dL (2.2-4.2); Glucose 100 mg/dL (70-99); Low Density Lipoprotein Calc. 76 mg/dL; Potassium 4.5 mmol/L (3.3-5.1); Triglycerides 79 mg/dL; Very Low Density Lipoprotein 16 mg/dL (5-40); cholesterol:hdl ratio screen 2.59
== END | disposition home or self-care (01) ==
LOC: MFPLAB 10:28
PROVIDERS: PCP Family Medicine; Visit Provider Family Medicine
DX: I10 Essential (primary) hypertension (principal); E03.9 Hypothyroidism, unspecified
CPT/HCPCS: 36415; 80053; 80061; 84439; 84443; 84481